=== PATIENT | male | born 1960 | race American Indian/Alaskan Native ===

== ENCOUNTER 2017-10-01 05:50 | Inpatient (IN) | payer MEDICARE, MEDICAID ==
[2017-10-01 05:51] VITALS: BMI 25.6
--- NOTE | 2017-10-01 06:11 | C.PDOC ---
History Of Present Illness Patient is a 57 y/o male who presents to the ED with a request for dialysis access. Time Seen by Provider: 10/01/17 05:57 Chief Complaint (Nursing): Abnormal Skin Integrity Past Medical History Vital Signs: Last Vital Signs Temp 97.8 F 10/01/17 05:59 Pulse 78 10/01/17 05:59 Resp 14 10/01/17 05:59 BP 175/79 H 10/01/17 05:59 Pulse Ox 96 10/01/17 06:11 - Medical History PMH: Anemia, CAD, CHF, COPD, HTN, End Stage Renal Disease (dialysis M/W/F), Chronic Kidney Disease - [facility] Procedures HEMODIALYSIS (10/16/14) Family History: States: Unknown Family Hx - Social History Hx Tobacco Use: Yes Hx Alcohol Use: No Hx Substance Use: No - Immunization History Hx Tetanus Toxoid Vaccination: No Hx Influenza Vaccination: Yes Hx Pneumococcal Vaccination: Yes ED Course And Treatment O2 Sat by Pulse Oximetry: 96 Disposition - Disposition Forms: Layar (Korean)
--- NOTE | 2017-10-01 06:18 | C.PDOC ---
History Of Present Illness Patient presents to ED for dialysis access. As per patient, he has worsening ulcerations of the skin over his left AV fistula. Wednesday when he went to hemodialysis (was completed), he was he would need another access for dialysis. Patient was sent to [facility] in [place], [place], where the area was medicated and bandaged. Patient was then sent to [facility] for further eval and access placement. However patient states the wait was too long and he left. He denies physical complaints. PMHx of ESRD on HD (M,W,F), anemia, HTN, COPD. PMD - none Vascular surgeon - Dr. Guerra Time Seen by Provider: 10/01/17 05:57 Chief Complaint (Nursing): Abnormal Skin Integrity History Per: Patient History/Exam Limitations: no limitations Current Symptoms Are (Timing): Still Present Severity: None Past Medical History Reviewed: Historical Data, Nursing Documentation, Vital Signs Vital Signs: Last Vital Signs Temp 98 F 10/01/17 19:30 Pulse 66 10/01/17 19:30 Resp 20 10/01/17 19:30 BP 160/108 H 10/01/17 20:50 Pulse Ox 96 10/01/17 19:30 - Medical History PMH: Anemia, CAD, CHF, COPD, HTN, End Stage Renal Disease (dialysis M/W/F), Chronic Kidney Disease - [facility] Procedures HEMODIALYSIS (10/16/14) Family History: States: No Known Family Hx - Social History Hx Tobacco Use: Yes Hx Alcohol Use: No Hx Substance Use: No - Immunization History Hx Tetanus Toxoid Vaccination: No Hx Influenza Vaccination: Yes Hx Pneumococcal Vaccination: Yes Review Of Systems Except As Marked, All Systems Reviewed And Found Negative. Constitutional: Negative for: Fever, Chills Cardiovascular: Negative for: Chest Pain Respiratory: Negative for: Cough, Shortness of Breath Musculoskeletal: Negative for: Arm Pain Skin: Negative for: Rash Neurological: Negative for: Weakness Physical Exam - Physical Exam Appears: Well, Non-toxic, No Acute Distress Skin: Other (left upper arm - two ulcerations over AV fistula without erythema or active bleeding, (+) palpable thrill) Oral Mucosa: Moist Cardiovascular: Rhythm Regular Respiratory: Normal Breath Sounds, No Rales, No Rhonchi, No Wheezing Gastrointestinal/Abdominal: Normal Exam, Bowel Sounds, Soft, No Tenderness Neurological/Psych: Oriented x3 ED Course And Treatment - Laboratory Results Result Diagrams: 10/01/17 06:38 10/01/17 06:38 ECG: Interpreted By Me, Viewed By Me (NSR 70 bpm, left axis deviation, peaked T waves V3-V4, no acute ST changes) ECG Interpretation: Abnormal O2 Sat by Pulse Oximetry: 96 (RA) Pulse Ox Interpretation: Normal - Radiology CXR: Interpreted by Me, Viewed By Me CXR Interpretation: Yes: No Acute Disease, Other (no effusions). No: Infiltrates Progress Note: Blood work, EKG, CXR ordered and reviewed. Dr. Guerra is on blue list, requests hospitalist admission. Dr. De La O spoken with and aware. - Physician Consult Information Physician Contacted: Lan Guerra Jr. Outcome Of Conversation: Discussed patient with Dr. Guerra, patient will be admitted under his service and taken to OR for dialysis access. Disposition - Disposition Disposition: HOSPITALIZED Disposition Time: 06:25 Condition: STABLE - Clinical Impression Clinical Impression: ESRD (end stage renal disease) on dialysis, Problem with dialysis access, Skin ulcer Decision To Admit - Pt Status Changed To: Hospital Disposition Of: Inpatient - Admit Certification Admit to Inpatient:: After my assessment, the patient will require hospitalization for at least two midnights. This is because of the severity of symptoms shown, intensity of services needed, and/or the medical risk in this patient being treated as an outpatient. - InPatient: Physician Admission Certification: I certify that this patient requires 2 or more midnights of care for the following reason:: see notes - . Bed Request Type: Regular Admitting Physician: Steve De La O Patient Diagnosis: Skin ulcer, ESRD (end stage renal disease) on dialysis, Problem with dialysis access
[2017-10-01 06:41] LABS: BASO # 0.1 K/uL (0.0-0.2); BASO % 1.1 % (0.0-2.0); EOS # 0.1 K/uL (0.0-0.7); HEMOGLOBIN 10.3 g/dL (12.0-18.0); LYMPH # 1.4 K/uL (1.0-4.3); MEAN CELL VOLUME 93.5 fL (80.0-94.0); MEAN CORPUSCULAR HEMOGLOBIN 31.6 pg (27.0-31.0); MEAN CORPUSCULAR HGB CONC 33.8 g/dL (33.0-37.0); MEAN PLATELET VOLUME 7.9 fL (7.2-11.7); MONO # 1.4 K/uL (0.0-0.8); MONO % 21.4 % (0.0-10.0); NEUT # 3.5 K/uL (1.8-7.0); NEUT % 54.5 % (50.0-75.0); NRBC % 0.2 % (0.0-2.0); PLATELET COUNT 402 K/uL (130-400); RBC 3.27 Mil/uL (4.40-5.90); RED CELL DISTRIBUTION WIDTH 16.8 % (11.5-14.5); WHITE BLOOD COUNT 6.4 K/uL (4.8-10.8)
[2017-10-01 06:53] LABS: INR 1.1; PROTHROMBIN TIME 12.3 SECONDS (9.7-12.2)
[2017-10-01 07:04] LABS: ALBUMIN 4.3 g/dL (3.5-5.0); CALCIUM 9.1 mg/dl (8.6-10.4)
--- NOTE | 2017-10-01 08:00 | CP.PCM.HP ---
History of Present Illness - History of Present Illness History of Present Illness: 57 year old male with past medical history of dialysis and HTN presents to ED for dialysis access. Per patient, he has worsening ulcerations of the skin over his left AV fistula. He states he needs another access for dialysis. Patient was sent to [facility] for further evaluation and access placement but states the wait was long and he left. He denies chest pain, shortness of breath, nausea, vomiting, pain, diarrhea or constipation. Vascular surgeon - Dr. Guerra Past Medical History: Dialysis for the past 6 years (MWF), HTN Past Surgical History: Right kidney removed 39 years ago; Left AV fistula 6 years ago Allergies: NKDA Social: pack and 1/2 per day for about 30+ years; denies alcohol or illicit drug use; lives in [place] Present on Admission - Present on Admission Any Indicators Present on Admission: No Review of Systems - Constitutional Constitutional: absent: Fever, Weight Loss - EENT Eyes: absent: Requires Corrective Lenses Ears: absent: Dizziness - Cardiovascular Cardiovascular: absent: Chest Pain, Dyspnea - Respiratory Respiratory: absent: Dyspnea - Gastrointestinal Gastrointestinal: absent: Constipation, Diarrhea, Nausea, Vomiting - Genitourinary Genitourinary: absent: Dysuria - Neurological Neurological: absent: Dizziness, Headaches Past Patient History - Infectious Disease Hx of Infectious Diseases: None - Past Medical History & Family History Past Medical History?: Yes - Past Social History Smoking Status: Heavy Smoker > 10 Cigarettes Daily - CARDIAC Hx Congestive Heart Failure: Yes Hx Hypertension: Yes - PULMONARY Hx Chronic Obstructive Pulmonary Disease (COPD): Yes - NEUROLOGICAL Hx Neurological Disorder: Yes HX Cerebrovascular Accident: Yes - HEENT Hx HEENT Problems: No - RENAL Hx Chronic Kidney Disease: Yes - ENDOCRINE/METABOLIC Hx Endocrine Disorders: No - HEMATOLOGICAL/ONCOLOGICAL Hx Anemia: Yes - INTEGUMENTARY Hx Dermatological Problems: No - MUSCULOSKELETAL/RHEUMATOLOGICAL Hx Falls: No - GASTROINTESTINAL Hx Gastrointestinal Disorders: No - GENITOURINARY/GYNECOLOGICAL Hx Genitourinary Disorders: No - PSYCHIATRIC Hx Substance Use: No - SURGICAL HISTORY Hx Surgeries: Yes Hx Arteriovenous Shunt: Yes Hx Vascular Access Device: Yes Other/Comment: nephrectomy hx at age 18 - ANESTHESIA Hx Anesthesia: Yes Hx Anesthesia Reactions: No Hx Malignant Hyperthermia: No Meds Allergies/Adverse Reactions: Allergies Allergy/AdvReac Type Severity Reaction Status Date / Time No Known Allergies Allergy Verified 10/01/17 06:02 Physical Exam - Constitutional Appears: No Acute Distress - Head Exam Head Exam: ATRAUMATIC, NORMAL INSPECTION - Eye Exam Eye Exam: EOMI, Normal appearance - ENT Exam ENT Exam: Mucous Membranes Moist - Respiratory Exam Respiratory Exam: Clear to Auscultation Bilateral, NORMAL BREATHING PATTERN - Cardiovascular Exam Cardiovascular Exam: REGULAR RHYTHM, RRR, +S1, +S2 - GI/Abdominal Exam GI & Abdominal Exam: Normal Bowel Sounds, Soft. absent: Distended, Tenderness - Extremities Exam Extremities exam: Positive for: normal inspection. Negative for: calf tenderness, pedal edema, tenderness - Neurological Exam Neurological exam: Alert, Oriented x3 - Psychiatric Exam Psychiatric exam: Normal Affect, Normal Mood - Skin Skin Exam: Normal Color, Warm Additional comments: Left arm AV fistula Results - Vital Signs Recent Vital Signs: Last Vital Signs Temp 97.8 F 10/01/17 05:59 Pulse 78 10/01/17 05:59 Resp 14 10/01/17 05:59 BP 175/79 H 10/01/17 05:59 Pulse Ox 96 10/01/17 07:02 - Labs Result Diagrams: 10/01/17 06:38 10/01/17 06:38 Labs: Laboratory Results - last 24 hr 10/01/17 10/01/17 10/01/17 05:55 06:38 06:38 WBC 6.4 RBC 3.27 L Hgb 10.3 L Hct 30.5 L MCV 93.5 D MCH 31.6 H MCHC 33.8 RDW 16.8 H Plt Count 402 H MPV 7.9 Neut % (Auto) 54.5 Lymph % (Auto) 22.0 [place] % (Auto) 21.4 H Eos % (Auto) 1.0 Baso % (Auto) 1.1 Neut # 3.5 Lymph # 1.4 [place] # 1.4 H Eos # 0.1 Baso # 0.1 PT INR APTT Sodium 138 Potassium 4.7 Chloride 93 L Carbon Dioxide 29 Anion Gap 21 H BUN 56 H Creatinine 13.9 H* Est GFR ( Amer) 4 Est GFR (Non-Af Amer) 4 POC Glucose (mg/dL) 74 Random Glucose 96 Calcium 9.1 Total Bilirubin 1.0 AST 15 L ALT 15 L D Alkaline Phosphatase 61 Total Protein 8.6 H Albumin 4.3 Globulin 4.3 H Albumin/Globulin Ratio 1.0 10/01/17 06:38 WBC RBC Hgb Hct MCV MCH MCHC RDW Plt Count MPV Neut % (Auto) Lymph % (Auto) [place] % (Auto) Eos % (Auto) Baso % (Auto) Neut # Lymph # [place] # Eos # Baso # PT 12.3 H INR 1.1 APTT 33 Sodium Potassium Chloride Carbon Dioxide Anion Gap BUN Creatinine Est GFR ( Amer) Est GFR (Non-Af Amer) POC Glucose (mg/dL) Random Glucose Calcium Total Bilirubin AST ALT Alkaline Phosphatase Total Protein Albumin Globulin Albumin/Globulin Ratio Assessment & Plan - Assessment and Plan (Free Text) Assessment: 57 year old male with past medical history of dialysis and HTN presents to ED for dialysis access. - Permacath to be placed today 09/[address] Mari Reyes PGY-1
--- NOTE | 2017-10-01 08:25 | RAD ---
PROCEDURE: CHEST RADIOGRAPH, 1 VIEW HISTORY: preop COMPARISON: 11/03/2016 FINDINGS: LUNGS: Clear. PLEURA: No pneumothorax or pleural fluid seen. CARDIOVASCULAR: Normal. OSSEOUS STRUCTURES: No significant abnormalities. VISUALIZED UPPER ABDOMEN: Normal. OTHER FINDINGS: None. IMPRESSION: No active disease.
[2017-10-01 08:42] LABS: BANDS 2 % (0-2); EOSINOPHIL 1 % (0-4); LYMPHOCYTE 29 % (20-40); MONOCYTE 18 % (0-10); NEUTROPHIL 50 % (50-75); PLATELET ESTIMATE NORMAL (NORMAL); TOTAL CELLS COUNTED 100
[2017-10-01 08:43] LABS: ANISOCYTOSIS MODERATE; HYPOCHROMIC MODERATE; MICROCYTOSIS SLIGHT; POIKILOCYTOSIS MODERATE; TEARDROP CELLS SLIGHT
[2017-10-01 08:44] LABS: GIANT PLATELETS PRESENT; LARGE PLATELETS PRESENT; OVALOCYTES MODERATE
--- NOTE | 2017-10-01 09:01 | CP.PCM.CON ---
History of Present Illness - History of Present Illness History of Present Illness: 57 year old male with past medical history of dialysis and HTN presents to ED for dialysis access. Per patient, he has worsening ulcerations of the skin over his left AV fistula. He states he needs another access for dialysis. Patient was sent to [facility] for further evaluation and access placement but states the wait was long and he left. He denies chest pain, shortness of breath, nausea, vomiting, pain, diarrhea or constipation. Vascular surgeon - Dr. Guerra Past Medical History: Dialysis for the past 6 years (MWF), HTN Past Surgical History: Right kidney removed 39 years ago; Left AV fistula 6 years ago Allergies: NKDA Social: pack and 1/2 per day for about 30+ years; denies alcohol or illicit drug use; lives in [place] Review of Systems - Constitutional Constitutional: absent: Chills, Fever, Weight Loss - Cardiovascular Cardiovascular: absent: Chest Pain, Dyspnea - Respiratory Respiratory: absent: Dyspnea - Gastrointestinal Gastrointestinal: absent: Constipation, Diarrhea, Nausea, Vomiting - Genitourinary Genitourinary: absent: Dysuria Past Patient History - Infectious Disease Hx of Infectious Diseases: None - Past Medical History & Family History Past Medical History?: Yes - Past Social History Smoking Status: Heavy Smoker > 10 Cigarettes Daily - CARDIAC Hx Congestive Heart Failure: Yes Hx Hypertension: Yes - PULMONARY Hx Chronic Obstructive Pulmonary Disease (COPD): Yes - NEUROLOGICAL Hx Neurological Disorder: Yes HX Cerebrovascular Accident: Yes - HEENT Hx HEENT Problems: No - RENAL Hx Chronic Kidney Disease: Yes - ENDOCRINE/METABOLIC Hx Endocrine Disorders: No - HEMATOLOGICAL/ONCOLOGICAL Hx Anemia: Yes - INTEGUMENTARY Hx Dermatological Problems: No - MUSCULOSKELETAL/RHEUMATOLOGICAL Hx Falls: No - GASTROINTESTINAL Hx Gastrointestinal Disorders: No - GENITOURINARY/GYNECOLOGICAL Hx Genitourinary Disorders: No - PSYCHIATRIC Hx Substance Use: No - SURGICAL HISTORY Hx Surgeries: Yes Hx Arteriovenous Shunt: Yes Hx Vascular Access Device: Yes Other/Comment: nephrectomy hx at age 18 - ANESTHESIA Hx Anesthesia: Yes Hx Anesthesia Reactions: No Hx Malignant Hyperthermia: No Meds Allergies/Adverse Reactions: Allergies Allergy/AdvReac Type Severity Reaction Status Date / Time No Known Allergies Allergy Verified 10/01/17 06:02 Physical Exam - Constitutional Appears: No Acute Distress - Head Exam Head Exam: ATRAUMATIC, NORMAL INSPECTION - Eye Exam Eye Exam: EOMI, Normal appearance - ENT Exam ENT Exam: Mucous Membranes Moist - Respiratory Exam Respiratory Exam: Clear to Auscultation Bilateral, NORMAL BREATHING PATTERN - Cardiovascular Exam Cardiovascular Exam: REGULAR RHYTHM, RRR, +S1, +S2 - GI/Abdominal Exam GI & Abdominal Exam: Normal Bowel Sounds, Soft. absent: Tenderness - Extremities Exam Additional comments: AV fistula in the left warm Results - Vital Signs Recent Vital Signs: Last Vital Signs Temp 97.8 F 10/01/17 05:59 Pulse 78 10/01/17 05:59 Resp 14 10/01/17 05:59 BP 175/79 H 10/01/17 05:59 Pulse Ox 96 10/01/17 07:02 - Labs Result Diagrams: 10/01/17 06:38 10/01/17 06:38 Labs: Laboratory Results - last 24 hr 10/01/17 10/01/17 10/01/17 05:55 06:38 06:38 WBC 6.4 RBC 3.27 L Hgb 10.3 L Hct 30.5 L MCV 93.5 D MCH 31.6 H MCHC 33.8 RDW 16.8 H Plt Count 402 H MPV 7.9 Neut % (Auto) 54.5 Lymph % (Auto) 22.0 [place] % (Auto) 21.4 H Eos % (Auto) 1.0 Baso % (Auto) 1.1 Neut # 3.5 Lymph # 1.4 [place] # 1.4 H Eos # 0.1 Baso # 0.1 Neutrophils % (Manual) 50 Band Neutrophils % 2 Lymphocytes % (Manual) 29 Monocytes % (Manual) 18 H Eosinophils % (Manual) 1 Platelet Estimate Normal Large Platelets Present Giant Platelets Present Hypochromasia (manual) Moderate Poikilocytosis (manual Moderate Anisocytosis (manual) Moderate Microcytosis (manual) Slight Macrocytosis (manual) Slight Tear Drop Cells Slight Ovalocytes Moderate PT INR APTT Sodium 138 Potassium 4.7 Chloride 93 L Carbon Dioxide 29 Anion Gap 21 H BUN 56 H Creatinine 13.9 H* Est GFR ( Amer) 4 Est GFR (Non-Af Amer) 4 POC Glucose (mg/dL) 74 Random Glucose 96 Calcium 9.1 Total Bilirubin 1.0 AST 15 L ALT 15 L D Alkaline Phosphatase 61 Total Protein 8.6 H Albumin 4.3 Globulin 4.3 H Albumin/Globulin Ratio 1.0 Blood Type Antibody Screen 10/01/17 10/01/17 06:38 06:38 WBC RBC Hgb Hct MCV MCH MCHC RDW Plt Count MPV Neut % (Auto) Lymph % (Auto) [place] % (Auto) Eos % (Auto) Baso % (Auto) Neut # Lymph # [place] # Eos # Baso # Neutrophils % (Manual) Band Neutrophils % Lymphocytes % (Manual) Monocytes % (Manual) Eosinophils % (Manual) Platelet Estimate Large Platelets Giant Platelets Hypochromasia (manual) Poikilocytosis (manual Anisocytosis (manual) Microcytosis (manual) Macrocytosis (manual) Tear Drop Cells Ovalocytes PT 12.3 H INR 1.1 APTT 33 Sodium Potassium Chloride Carbon Dioxide Anion Gap BUN Creatinine Est GFR ( Amer) Est GFR (Non-Af Amer) POC Glucose (mg/dL) Random Glucose Calcium Total Bilirubin AST ALT Alkaline Phosphatase Total Protein Albumin Globulin Albumin/Globulin Ratio Blood Type A POSITIVE Antibody Screen Negative Assessment & Plan - Assessment and Plan (Free Text) Assessment: 57 year old male with past medical history of dialysis and HTN presents to ED for dialysis access. - Permacath to be placed today 09/[address] Mari Reyes PGY-1
--- NOTE | 2017-10-01 10:07 | CP.PCM.HP ---
History of Present Illness - History of Present Illness History of Present Illness: PGY1 H+P for Dr. Corona Patient is a 57 year old male with a past medical history of ESRD on HD and HTN. He reports that he has had worsening ulcerations over the skin of his left AV fistula. He first noticed the ulcerations starting approximately one month ago but did nothing about it. The access center sent him to [facility] for further evaluation. He stated that the wait was too long so he decided to come to [facility]. He normally gets dialysis MWF and his last treatment was on Wednesday. He denies chest pain, shortness of breath, nausea, vomiting, pain, diarrhea or constipation. Patient states he feels completely normal and if it was not for the ulcerations on his arm, he would be here today. Vascular surgeon - Dr. Guerra PMH: Dialysis for the past 6 years (MWF), HTN PSH: Right kidney removed 39 years ago; Left AV fistula 6 years ago Social: active smoker (30+ pack years), denies alcohol or illicit drug use ( quit all drugs ~16 years ago. "I used everything. Never injected. Smoked and snort.") Allergies: NKDA Present on Admission - Present on Admission Any Indicators Present on Admission: No Review of Systems - Review of Systems All systems: reviewed and no additional remarkable complaints except (as per HPI ) Past Patient History - Infectious Disease Hx of Infectious Diseases: None - Past Medical History & Family History Past Medical History?: Yes - Past Social History Smoking Status: Heavy Smoker > 10 Cigarettes Daily - CARDIAC Hx Congestive Heart Failure: Yes Hx Hypertension: Yes - PULMONARY Hx Chronic Obstructive Pulmonary Disease (COPD): Yes - NEUROLOGICAL Hx Neurological Disorder: Yes HX Cerebrovascular Accident: Yes - HEENT Hx HEENT Problems: No - RENAL Hx Chronic Kidney Disease: Yes - ENDOCRINE/METABOLIC Hx Endocrine Disorders: No - HEMATOLOGICAL/ONCOLOGICAL Hx Anemia: Yes - INTEGUMENTARY Hx Dermatological Problems: No - MUSCULOSKELETAL/RHEUMATOLOGICAL Hx Falls: No - GASTROINTESTINAL Hx Gastrointestinal Disorders: No - GENITOURINARY/GYNECOLOGICAL Hx Genitourinary Disorders: No - PSYCHIATRIC Hx Substance Use: No - SURGICAL HISTORY Hx Surgeries: Yes Hx Arteriovenous Shunt: Yes Hx Vascular Access Device: Yes Other/Comment: nephrectomy hx at age 18 - ANESTHESIA Hx Anesthesia: Yes Hx Anesthesia Reactions: No Hx Malignant Hyperthermia: No Meds Allergies/Adverse Reactions: Allergies Allergy/AdvReac Type Severity Reaction Status Date / Time No Known Allergies Allergy Verified 10/01/17 06:02 Physical Exam - Constitutional Appears: Non-toxic, No Acute Distress - Head Exam Head Exam: ATRAUMATIC, NORMOCEPHALIC - Eye Exam Eye Exam: EOMI, Normal appearance, PERRL - ENT Exam ENT Exam: Mucous Membranes Moist - Respiratory Exam Respiratory Exam: Wheezes (denied breathing treatment), NORMAL BREATHING PATTERN. absent: Accessory Muscle Use, Rales, Rhonchi, Respiratory Distress - Cardiovascular Exam Cardiovascular Exam: REGULAR RHYTHM, +S1 - GI/Abdominal Exam GI & Abdominal Exam: Soft. absent: Distended, Firm, Guarding, Hernia, Rigid, Tenderness - Extremities Exam Extremities exam: Positive for: normal capillary refill, normal inspection, pedal pulses present. Negative for: calf tenderness, pedal edema Additional comments: palpable thrill over left upper arm AV fistula - Neurological Exam Neurological exam: Alert, CN II-XII Intact, Normal Gait, Oriented x3 - Psychiatric Exam Psychiatric exam: Normal Affect, Normal Mood - Skin Skin Exam: Dry, Warm Additional comments: Ulcerations over left av fistula Results - Vital Signs Recent Vital Signs: Last Vital Signs Temp 97.8 F 10/01/17 05:59 Pulse 67 10/01/17 08:42 Resp 14 10/01/17 05:59 BP 175/79 H 10/01/17 05:59 Pulse Ox 96 10/01/17 07:02 - Labs Result Diagrams: 10/01/17 06:38 10/01/17 06:38 Labs: Laboratory Results - last 24 hr 10/01/17 10/01/17 10/01/17 05:55 06:38 06:38 WBC 6.4 RBC 3.27 L Hgb 10.3 L Hct 30.5 L MCV 93.5 D MCH 31.6 H MCHC 33.8 RDW 16.8 H Plt Count 402 H MPV 7.9 Neut % (Auto) 54.5 Lymph % (Auto) 22.0 [place] % (Auto) 21.4 H Eos % (Auto) 1.0 Baso % (Auto) 1.1 Neut # 3.5 Lymph # 1.4 [place] # 1.4 H Eos # 0.1 Baso # 0.1 Neutrophils % (Manual) 50 Band Neutrophils % 2 Lymphocytes % (Manual) 29 Monocytes % (Manual) 18 H Eosinophils % (Manual) 1 Platelet Estimate Normal Large Platelets Present Giant Platelets Present Hypochromasia (manual) Moderate Poikilocytosis (manual Moderate Anisocytosis (manual) Moderate Microcytosis (manual) Slight Macrocytosis (manual) Slight Tear Drop Cells Slight Ovalocytes Moderate PT INR APTT Sodium 138 Potassium 4.7 Chloride 93 L Carbon Dioxide 29 Anion Gap 21 H BUN 56 H Creatinine 13.9 H* Est GFR ( Amer) 4 Est GFR (Non-Af Amer) 4 POC Glucose (mg/dL) 74 Random Glucose 96 Calcium 9.1 Total Bilirubin 1.0 AST 15 L ALT 15 L D Alkaline Phosphatase 61 Total Protein 8.6 H Albumin 4.3 Globulin 4.3 H Albumin/Globulin Ratio 1.0 Blood Type Antibody Screen 10/01/17 10/01/17 06:38 06:38 WBC RBC Hgb Hct MCV MCH MCHC RDW Plt Count MPV Neut % (Auto) Lymph % (Auto) [place] % (Auto) Eos % (Auto) Baso % (Auto) Neut # Lymph # [place] # Eos # Baso # Neutrophils % (Manual) Band Neutrophils % Lymphocytes % (Manual) Monocytes % (Manual) Eosinophils % (Manual) Platelet Estimate Large Platelets Giant Platelets Hypochromasia (manual) Poikilocytosis (manual Anisocytosis (manual) Microcytosis (manual) Macrocytosis (manual) Tear Drop Cells Ovalocytes PT 12.3 H INR 1.1 APTT 33 Sodium Potassium Chloride Carbon Dioxide Anion Gap BUN Creatinine Est GFR ( Amer) Est GFR (Non-Af Amer) POC Glucose (mg/dL) Random Glucose Calcium Total Bilirubin AST ALT Alkaline Phosphatase Total Protein Albumin Globulin Albumin/Globulin Ratio Blood Type A POSITIVE Antibody Screen Negative Assessment & Plan - Assessment and Plan (Free Text) Plan: ESRD on HD (MWF) Gen. Surg Consult, Dr. Guerra Nephro consult, Dr. Neri Patient scheduled to have Permacath placed today, 10/01/17, with Dr. Guerra. Patient will have HD after surgery. f/u surgery recs f/u nephro recs HTN continue home medications * Amlodipine 10mg PO daily * Carvedilol 25mg PO BID * Clonidine 0.3mg PO BID * Crestor 5mg PO HS Prophylactic Care continue home medications * Albuterol HFA 2 puff IH q4 PRN * Phoslo 2001mg PO TIDCC * Cinacalcet 30mg PO daily * Multimineral/Multivitamin 1 tab PO daily * Protonix 40mg PO daily Case discussed with Dr. Chloe Cabrales Rosemary PGY1
[2017-10-01] MEDS ORDERED: Albuterol HFA 90 mcg/actuation (8 g) IH PRN (11:35)
[2017-10-01] MEDS ORDERED: HEPARIN-NS 5,000 UNITS/500 ML 5,000 UNIT/500 ML BAG IV ONE (11:55)
[2017-10-01] MEDS ORDERED: Lidocaine 1% Inj (20ml) ONE (11:56)
[2017-10-01] MEDS ORDERED: Midazolam 2 MG/2 ML VIAL ONE (11:59)
[2017-10-01] MEDS ORDERED: Propofol 10 mg/ml Inj (20 ML) ONE (11:59)
[2017-10-01] MEDS ORDERED: Lidocaine Hydrochloride 5 ML INJ ONE (11:59)
[2017-10-01] MEDS ORDERED: Iodixanol 320 MG/ML 200 ML BOTTLE IV ONE (12:01)
[2017-10-01] MEDS ORDERED: Albuterol HFA 90 mcg/actuation (8 g) ONE (12:04)
[2017-10-01] MEDS ORDERED: ceFAZolin IV 1 gm in Dextrose 1 GM/50 ML BAG IVPB ONE (12:43)
[2017-10-01] MEDS ORDERED: Sodium Chloride 0.9% 250 ML IV ONE (12:58)
--- NOTE | 2017-10-01 13:13 | CP.PCM.PN ---
Subjective - Date & Time of Evaluation Date of Evaluation: 10/01/17 Time of Evaluation: 13:12 - Subjective Subjective: will plan new permanent access as opd Objective - Vital Signs/Intake and Output Vital Signs (last 24 hours): Temp Pulse Resp BP Pulse Ox 97.8 F 67 20 159/88 H 100 10/01/17 08:00 10/01/17 08:42 10/01/17 08:00 10/01/17 08:00 10/01/17 08:00 Intake and Output: 10/01/17 10/01/17 06:59 18:59 Intake Total 150 Balance 150 - Medications Medications: Current Medications Albuterol (Ventolin Hfa 90 Mcg/Actuation (8 G)) 2 puff IH Q4 PRN PRN Reason: Wheezing Amlodipine Besylate (Norvasc) 10 mg PO DAILY [facility] Calcium Acetate (Phoslo) 2,001 mg PO TID[facility] Last Admin: 10/01/17 11:54 Dose: Not Given Carvedilol (Coreg) 25 mg PO BID [facility] Cinacalcet (Sensipar) 30 mg PO DAILY [facility] Clonidine HCl (Catapres) 0.3 mg PO BID [facility] Multivitamins/Minerals (Therapeutic-M Tab) 1 tab PO DAILY [facility] [id number] Ethyl Esters (Lovaza) 1 gm PO BID [facility] Pantoprazole Sodium (Protonix Ec Tab) 40 mg PO DAILY [facility] Pneumococcal Polyvalent Vaccine (Pneumovax 23 Vaccine) 0.5 ml SC .ONCE ONE Stop: 10/03/17 10:01 Rosuvastatin Calcium (Crestor) 5 mg PO HS ABELINO - Labs Labs: 10/01/17 06:38 10/01/17 06:38 PT 12.3 SECONDS (9.7-12.2) H 10/01/17 06:38 INR 1.1 10/01/17 06:38 APTT 33 SECONDS (21-34) 10/01/17 06:38
[2017-10-01] MEDS ORDERED: Sodium Chloride 0.9% 1,000 ML IV SCH (13:15)
--- NOTE | 2017-10-01 13:27 | RAD ---
HISTORY: sp RIJ permacath COMPARISON: 10/01/2017 at 6:40 a.m. FINDINGS: LUNGS: No active pulmonary disease. PLEURA: No significant pleural effusion identified, no pneumothorax apparent. CARDIOVASCULAR: Normal heart size. New tunneled right central venous dialysis catheter terminating in the region of the superior vena cava. OSSEOUS STRUCTURES: No significant abnormalities. VISUALIZED UPPER ABDOMEN: Normal. OTHER FINDINGS: None. IMPRESSION: New right central venous dialysis catheter.
--- NOTE | 2017-10-01 13:33 | PCM.SURG1 ---
Surgeon's Initial Post Op Note - Surgeon's Notes Surgeon: Dr Guerra Fish Bailer: Dr Umanzor PGY3 Type of Anesthesia: General Endo Pre-Operative Diagnosis: renal failure Operative Findings: as above Post-Operative Diagnosis: as above Operation Performed: RIJ permacath insertion with US Specimen/Specimens Removed: none Estimated Blood Loss: EBL {In ML}: 5 Blood Products Given: N/A Drains Used: No Drains Post-Op Condition: Good Date of Surgery/Procedure: 10/01/17 Time of Surgery/Procedure: 13:33
--- NOTE | 2017-10-01 14:00 | RAD ---
PROCEDURE: Less than 1 hr fluoroscopic time utilized during performance of the procedure. HISTORY: RENAL FAILURE COMPARISON: None TECHNIQUE: Standard protocol for this study/examination. FINDINGS: Total exam DLP: (mGy): 2.02 Submitted images from the current procedure: 5.0 IMPRESSION: Total fluoroscopic time (continuous mode) utilized during the procedure: 13.6 seconds.
--- NOTE | 2017-10-01 14:48 | CP.PCM.CON ---
History of Present Illness - History of Present Illness History of Present Illness: 57 year old male with past medical history of dialysis and HTN presents to ED for dialysis access. Per patient, he has worsening ulcerations of the skin over his left AV fistula. He states he needs another access for dialysis. Patient was sent to [facility] for further evaluation and access placement but states the wait was long and he left. He denies chest pain, shortness of breath, nausea, vomiting, pain, diarrhea or constipation. Other PMH: CHRONIC GN ATROPHIC SOLITARY KIDNEY Vascular surgeon - Dr. Guerra Past Medical History: Dialysis for the past 6 years (MWF), HTN Past Surgical History: Right kidney removed 39 years ago; Left AV fistula 6 years ago Allergies: NKDA Social: pack and 1/2 per day for about 30+ years; denies alcohol or illicit drug use; lives in [place] Review of Systems - Constitutional Constitutional: Fatigue, Lethargy, Weakness - EENT Eyes: absent: As Per HPI, Blind Spots, Blurred Vision, Change in Vision, Decreased Night Vision, Diplopia, Discharge, Dry Eye, Exophthalmos, Floaters, Irritation, Itchy Eyes, Loss of Peripheral Vision, Pain, Photophobia, Requires Corrective Lenses, Sees Flashes, Spots in Vision, Tunnel Vision, Other Visual Disturbances, Loss of Vision, Other Ears: absent: As Per HPI, Decreased Hearing, Ear Discharge, Ear Pain, Tinnitus, Abnormal Hearing, Disequilibrium, Dizziness, Other Nose/Mouth/Throat: absent: As Per HPI, Epistaxis, Nasal Congestion, Nasal Discharge, Nasal Obstruction, Nasal Trauma, Nose Pain, Post Nasal Drip, Sinus Pain, Sinus Pressure, Bleeding Gums, Change in Voice, Dental Pain, Dry Mouth, Dysphagia, Halitosis, Hoarsness, Lip Swelling, Mouth Lesions, Mouth Pain, Odynophagia, Sore Throat, Throat Swelling, Tongue Swelling, Facial Pain, Neck Pain, Neck Mass, Other - Cardiovascular Cardiovascular: Dyspnea on Exertion, Rapid Heart Rate - Respiratory Respiratory: Cough, Dyspnea on Exertion - Gastrointestinal Gastrointestinal: Constipation, Nausea - Genitourinary Genitourinary: As Per HPI - Musculoskeletal Musculoskeletal: Muscle Weakness, Myalgias Past Patient History - Infectious Disease Hx of Infectious Diseases: None - Past Medical History & Family History Past Medical History?: Yes Past Family History: Reviewed and not pertinent - Past Social History Smoking Status: Heavy Smoker > 10 Cigarettes Daily Chewing Tobacco Use: No Cigar Use: No Alcohol: Occasional Drugs: Denies - CARDIAC Hx Congestive Heart Failure: Yes Hx Hypertension: Yes - PULMONARY Hx Chronic Obstructive Pulmonary Disease (COPD): Yes - NEUROLOGICAL Hx Neurological Disorder: Yes HX Cerebrovascular Accident: Yes - HEENT Hx HEENT Problems: No - RENAL Hx Chronic Kidney Disease: Yes - ENDOCRINE/METABOLIC Hx Endocrine Disorders: No - HEMATOLOGICAL/ONCOLOGICAL Hx Anemia: Yes - INTEGUMENTARY Hx Dermatological Problems: No - MUSCULOSKELETAL/RHEUMATOLOGICAL Hx Falls: No - GASTROINTESTINAL Hx Gastrointestinal Disorders: No - GENITOURINARY/GYNECOLOGICAL Hx Genitourinary Disorders: No - PSYCHIATRIC Hx Substance Use: No - SURGICAL HISTORY Hx Surgeries: Yes Hx Arteriovenous Shunt: Yes Hx Vascular Access Device: Yes Other/Comment: nephrectomy hx at age 18 - ANESTHESIA Hx Anesthesia: Yes Hx Anesthesia Reactions: No Hx Malignant Hyperthermia: No Meds Allergies/Adverse Reactions: Allergies Allergy/AdvReac Type Severity Reaction Status Date / Time No Known Allergies Allergy Verified 10/01/17 06:02 - Medications Medications: Current Medications Albuterol (Ventolin Hfa 90 Mcg/Actuation (8 G)) 2 puff IH Q4 PRN PRN Reason: Wheezing Amlodipine Besylate (Norvasc) 10 mg PO DAILY [facility] Calcium Acetate (Phoslo) 2,001 mg PO TIDCC [facility] Last Admin: 10/01/17 11:54 Dose: Not Given Carvedilol (Coreg) 25 mg PO BID [facility] Cinacalcet (Sensipar) 30 mg PO DAILY [facility] Clonidine HCl (Catapres) 0.3 mg PO BID [facility] Hydromorphone HCl (Dilaudid) 0.5 mg IVP Q10M PRN PRN Reason: Pain, moderate (4-7) Stop: 10/01/17 15:11 Sodium Chloride (Sodium Chloride 0.9%) 1,000 mls @ 50 mls/hr IV .Q20H [facility] Multivitamins/Minerals (Therapeutic-M Tab) 1 tab PO DAILY [facility] [id number] Ethyl Esters (Lovaza) 1 gm PO BID [facility] Pantoprazole Sodium (Protonix Ec Tab) 40 mg PO DAILY [facility] Pneumococcal Polyvalent Vaccine (Pneumovax 23 Vaccine) 0.5 ml SC .ONCE ONE Stop: 10/03/17 10:01 Rosuvastatin Calcium (Crestor) 5 mg PO HS [facility] Physical Exam - Constitutional Appears: No Acute Distress, Chronically Ill - Head Exam Head Exam: ATRAUMATIC, NORMAL INSPECTION - Eye Exam Eye Exam: EOMI, Normal appearance - Neck Exam Neck exam: Positive for: Normal Inspection. Negative for: Tenderness - Respiratory Exam Respiratory Exam: Clear to Auscultation Bilateral, NORMAL BREATHING PATTERN - Cardiovascular Exam Cardiovascular Exam: REGULAR RHYTHM, +S1 - GI/Abdominal Exam GI & Abdominal Exam: Soft. absent: Tenderness - Extremities Exam Extremities exam: Positive for: normal inspection. Negative for: tenderness - Neurological Exam Neurological exam: Alert, CN II-XII Intact - Skin Skin Exam: Dry, Warm Results - Vital Signs Recent Vital Signs: Last Vital Signs Temp 98.1 F 10/01/17 12:58 Pulse 72 10/01/17 12:58 Resp 24 10/01/17 12:58 BP 146/87 10/01/17 12:58 Pulse Ox 100 10/01/17 12:58 - Labs Result Diagrams: 10/01/17 06:38 10/01/17 06:38 Labs: Laboratory Results - last 24 hr 10/01/17 10/01/17 10/01/17 05:55 06:38 06:38 WBC 6.4 RBC 3.27 L Hgb 10.3 L Hct 30.5 L MCV 93.5 D MCH 31.6 H MCHC 33.8 RDW 16.8 H Plt Count 402 H MPV 7.9 Neut % (Auto) 54.5 Lymph % (Auto) 22.0 O'Brien % (Auto) 21.4 H Eos % (Auto) 1.0 Baso % (Auto) 1.1 Neut # 3.5 Lymph # 1.4 O'Brien # 1.4 H Eos # 0.1 Baso # 0.1 Neutrophils % (Manual) 50 Band Neutrophils % 2 Lymphocytes % (Manual) 29 Monocytes % (Manual) 18 H Eosinophils % (Manual) 1 Platelet Estimate Normal Large Platelets Present Giant Platelets Present Hypochromasia (manual) Moderate Poikilocytosis (manual Moderate Anisocytosis (manual) Moderate Microcytosis (manual) Slight Macrocytosis (manual) Slight Tear Drop Cells Slight Ovalocytes Moderate PT INR APTT Sodium 138 Potassium 4.7 Chloride 93 L Carbon Dioxide 29 Anion Gap 21 H BUN 56 H Creatinine 13.9 H* Est GFR ( Amer) 4 Est GFR (Non-Af Amer) 4 POC Glucose (mg/dL) 74 Random Glucose 96 Calcium 9.1 Total Bilirubin 1.0 AST 15 L ALT 15 L D Alkaline Phosphatase 61 Total Protein 8.6 H Albumin 4.3 Globulin 4.3 H Albumin/Globulin Ratio 1.0 Blood Type Antibody Screen 10/01/17 10/01/17 06:38 06:38 WBC RBC Hgb Hct MCV MCH MCHC RDW Plt Count MPV Neut % (Auto) Lymph % (Auto) O'Brien % (Auto) Eos % (Auto) Baso % (Auto) Neut # Lymph # O'Brien # Eos # Baso # Neutrophils % (Manual) Band Neutrophils % Lymphocytes % (Manual) Monocytes % (Manual) Eosinophils % (Manual) Platelet Estimate Large Platelets Giant Platelets Hypochromasia (manual) Poikilocytosis (manual Anisocytosis (manual) Microcytosis (manual) Macrocytosis (manual) Tear Drop Cells Ovalocytes PT 12.3 H INR 1.1 APTT 33 Sodium Potassium Chloride Carbon Dioxide Anion Gap BUN Creatinine Est GFR ( Amer) Est GFR (Non-Af Amer) POC Glucose (mg/dL) Random Glucose Calcium Total Bilirubin AST ALT Alkaline Phosphatase Total Protein Albumin Globulin Albumin/Globulin Ratio Blood Type A POSITIVE Antibody Screen Negative Assessment & Plan (1) Hypertensive chronic kidney disease with stage 5 chronic kidney disease or end stage renal disease Status: Acute (2) Bleeding from dialysis shunt Status: Acute (3) ESRD (end stage renal disease) Status: Acute (4) HTN (hypertension) Status: Acute Priority: High - Assessment and Plan (Free Text) Plan: DIALYSIS NOW BLOOD c+s new permcath might need revision av access
[2017-10-01] MEDS: Omega-3-Acid Ethyl Esters 1 GM Cap PO SCH (20:49)
--- NOTE | 2017-10-02 01:37 | OP ---
PROCEDURE DATE: 10/01/2017 PREOPERATIVE DIAGNOSIS: Malfunction of arteriovenous fistula, left arm. POSTOPERATIVE DIAGNOSIS: Malfunction of arteriovenous fistula, left arm. PROCEDURE CARRIED OUT: Placement of Perm-A-Cath, right jugular vein with C-arm fluoroscopy, ultrasound-guided puncture and micropuncture technique. SURGEON: Lan Guerra Jr., MD. ROOM WORKER: Dr. Umanzor. ANESTHESIA ADMINISTERED BY: Mr. Ryaa. INDICATIONS: The patient is an older middle-aged man with renal insufficiency, who had problems with his fistula to gain access. Because of this, Perm-A-Cath is inserted today. DESCRIPTION OF PROCEDURE: The patient was given local anesthesia, intravenous antibiotics. Using ultrasound guidance and micropuncture technique, the right jugular vein was cannulated. Under fluoroscopic control, guidewire was advanced centrally. Sheath dilator was passed over this. Catheter was flushed with heparinized saline. Positioned in the appropriate location with excellent return. It was tunneled on the right chest wall, beginning on the right chest wall and terminating in the superior vena cava via the right jugular vein. Ultrasound images of the neck showed that the vein was 14 to 15 mm in diameter with normal compressibility and no evidence of intraluminal thrombosis. Examination of his fistula shows that eventually we will have to place this with a new access device. Lan Guerra Jr., MD
[2017-10-02 07:59] LABS: BASO # 0.1 K/uL (0.0-0.2); BASO % 1.4 % (0.0-2.0); EOS # 0.1 K/uL (0.0-0.7); EOS % 1.4 % (0.0-4.0); HEMOGLOBIN 10.2 g/dL (12.0-18.0); LYMPH # 0.9 K/uL (1.0-4.3); MEAN CORPUSCULAR HEMOGLOBIN 31.3 pg (27.0-31.0); MEAN CORPUSCULAR HGB CONC 33.7 g/dL (33.0-37.0); MEAN PLATELET VOLUME 7.6 fL (7.2-11.7); MONO % 19.4 % (0.0-10.0); NEUT # 3.1 K/uL (1.8-7.0); NEUT % 59.8 % (50.0-75.0); RBC 3.27 Mil/uL (4.40-5.90); RED CELL DISTRIBUTION WIDTH 17.3 % (11.5-14.5); WHITE BLOOD COUNT 5.2 K/uL (4.8-10.8)
[2017-10-02 08:52] LABS: ALB/GLOB RATIO 1.1 (1.0-2.1); ALBUMIN 4.1 g/dL (3.5-5.0); CALCIUM 8.6 mg/dl (8.6-10.4); MAGNESIUM 1.9 mg/dL (1.6-2.3)
[2017-10-02] MEDS: Pantoprazole 40 mg EC Tab PO SCH (10:03)
[2017-10-02] MEDS: Omega-3-Acid Ethyl Esters 1 GM Cap PO SCH ×2 (10:03→17:13)
[2017-10-02] MEDS: Multivitamin With Minerals Tab PO SCH (10:03)
--- NOTE | 2017-10-02 11:26 | CP.PCM.PN ---
Subjective - Date & Time of Evaluation Date of Evaluation: 10/02/17 Time of Evaluation: 11:24 - Subjective Subjective: feels tired bleeding from catheter site yesterday pressure dressing applied no SB had HD yesterday ROS- as per HPI, other than that 10 point ROS negative Objective - Vital Signs/Intake and Output Vital Signs (last 24 hours): Temp Pulse Resp BP Pulse Ox 98.5 F 97 H 20 187/94 H 95 10/02/17 08:22 10/02/17 08:22 10/02/17 08:22 10/02/17 10:03 10/02/17 08:22 Intake and Output: 10/02/17 10/02/17 06:59 18:59 Intake Total 150 Balance 150 - Medications Medications: Current Medications Albuterol (Ventolin Hfa 90 Mcg/Actuation (8 G)) 2 puff IH Q4 PRN PRN Reason: Wheezing Amlodipine Besylate (Norvasc) 10 mg PO DAILY [facility] Last Admin: 10/02/17 10:03 Dose: 10 mg Calcium Acetate (Phoslo) 2,001 mg PO TIDCC [facility] Last Admin: 10/02/17 08:53 Dose: 2,001 mg Carvedilol (Coreg) 25 mg PO BID [facility] Last Admin: 10/02/17 10:03 Dose: 25 mg Cinacalcet (Sensipar) 30 mg PO DAILY [facility] Last Admin: 10/02/17 10:03 Dose: 30 mg Clonidine HCl (Catapres) 0.3 mg PO BID [facility] Last Admin: 10/02/17 10:03 Dose: 0.3 mg Multivitamins/Minerals (Therapeutic-M Tab) 1 tab PO DAILY [facility] Last Admin: 10/02/17 10:03 Dose: 1 tab [id number] Ethyl Esters (Lovaza) 1 gm PO BID [facility] Last Admin: 10/02/17 10:03 Dose: 1 gm Pantoprazole Sodium (Protonix Ec Tab) 40 mg PO DAILY [facility] Last Admin: 10/02/17 10:03 Dose: 40 mg Pneumococcal Polyvalent Vaccine (Pneumovax 23 Vaccine) 0.5 ml SC .ONCE ONE Stop: 10/03/17 10:01 Rosuvastatin Calcium (Crestor) 5 mg PO HS [facility] Last Admin: 10/01/17 21:15 Dose: 5 mg - Labs Labs: 10/02/17 07:52 10/02/17 07:52 PT 12.3 SECONDS (9.7-12.2) H 10/01/17 06:38 INR 1.1 10/01/17 06:38 APTT 33 SECONDS (21-34) 10/01/17 06:38 - Constitutional Appears: Well, Non-toxic - Head Exam Head Exam: ATRAUMATIC, NORMOCEPHALIC - Eye Exam Eye Exam: EOMI, PERRL - ENT Exam ENT Exam: Mucous Membranes Moist - Neck Exam Neck Exam: Full ROM - Respiratory Exam Respiratory Exam: Clear to Ausculation Bilateral. absent: Rhonchi, Wheezes - Cardiovascular Exam Cardiovascular Exam: REGULAR RHYTHM, +S1, +S2 - GI/Abdominal Exam GI & Abdominal Exam: Soft. absent: Tenderness - Extremities Exam Extremities Exam: Full ROM. absent: Pedal Edema - Neurological Exam Neurological Exam: Alert, Awake, Oriented x3 - Psychiatric Exam Psychiatric exam: Normal Affect, Normal Mood - Skin Skin Exam: Normal Color, Warm Assessment and Plan (1) ESRD (end stage renal disease) on dialysis Status: Acute (2) Problem with dialysis access Status: Acute (3) Anemia Status: Acute (4) Bleeding from dialysis shunt Status: Acute (5) HTN (hypertension) Status: Acute (6) Chronic congestive heart failure Status: Chronic - Assessment and Plan (Free Text) Plan: HD MWF hb stable needs fistulogram no culture results noted
[2017-10-02] MEDS ORDERED: Desmopressin 4 mcg/ml Inj (1 ml) SC ONE (13:45)
--- NOTE | 2017-10-02 14:09 | CP.PCM.PN ---
<Keron Riley - Last Filed: 10/02/17 13:57> Subjective - Date & Time of Evaluation Date of Evaluation: 10/02/17 Time of Evaluation: 08:35 - Subjective Subjective: PGY1 Medicine Note for Dr. Corona Patient seen and examined this morning. Patient has been experiencing bleeding from his permacath site. Objective - Vital Signs/Intake and Output Vital Signs (last 24 hours): Temp Pulse Resp BP Pulse Ox 98.5 F 97 H 20 187/94 H 95 10/02/17 08:22 10/02/17 08:22 10/02/17 08:22 10/02/17 10:03 10/02/17 08:22 Intake and Output: 10/02/17 10/02/17 06:59 18:59 Intake Total 150 Balance 150 - Medications Medications: Current Medications Albuterol (Ventolin Hfa 90 Mcg/Actuation (8 G)) 2 puff IH Q4 PRN PRN Reason: Wheezing Amlodipine Besylate (Norvasc) 10 mg PO DAILY [facility] Last Admin: 10/02/17 10:03 Dose: 10 mg Calcium Acetate (Phoslo) 2,001 mg PO TIDCC [facility] Last Admin: 10/02/17 12:38 Dose: 2,001 mg Carvedilol (Coreg) 25 mg PO BID [facility] Last Admin: 10/02/17 10:03 Dose: 25 mg Cinacalcet (Sensipar) 30 mg PO DAILY [facility] Last Admin: 10/02/17 10:03 Dose: 30 mg Clonidine HCl (Catapres) 0.3 mg PO BID [facility] Last Admin: 10/02/17 10:03 Dose: 0.3 mg Desmopressin Acetate (Ddavp) 30 mcg SC ONCE ONE Stop: 10/02/17 13:46 Multivitamins/Minerals (Therapeutic-M Tab) 1 tab PO DAILY [facility] Last Admin: 10/02/17 10:03 Dose: 1 tab [id number]-2-[id number] Ethyl Esters (Lovaza) 1 gm PO BID [facility] Last Admin: 10/02/17 10:03 Dose: 1 gm Pantoprazole Sodium (Protonix Ec Tab) 40 mg PO DAILY [facility] Last Admin: 10/02/17 10:03 Dose: 40 mg Pneumococcal Polyvalent Vaccine (Pneumovax 23 Vaccine) 0.5 ml SC .ONCE ONE Stop: 10/03/17 10:01 Rosuvastatin Calcium (Crestor) 5 mg PO HS [facility] Last Admin: 10/01/17 21:15 Dose: 5 mg - Labs Labs: 10/02/17 07:52 10/02/17 07:52 PT 12.3 SECONDS (9.7-12.2) H 10/01/17 06:38 INR 1.1 10/01/17 06:38 APTT 33 SECONDS (21-34) 10/01/17 06:38 - Constitutional Appears: Non-toxic, No Acute Distress - Head Exam Head Exam: ATRAUMATIC, NORMOCEPHALIC - Eye Exam Eye Exam: EOMI, Normal appearance Pupil Exam: NORMAL ACCOMODATION - ENT Exam ENT Exam: Mucous Membranes Moist - Respiratory Exam Respiratory Exam: Wheezes, NORMAL BREATHING PATTERN. absent: Accessory Muscle Use, Clear to Ausculation Bilateral, Rales, Rhonchi, Respiratory Distress Additional comments: Permacath in R IJ, dressing saturated with blood. residential real estate sales manager Noé called. New pressure dressing applied. - Cardiovascular Exam Cardiovascular Exam: REGULAR RHYTHM, +S1 - GI/Abdominal Exam GI & Abdominal Exam: Soft, Normal Bowel Sounds. absent: Distended, Firm, Guarding, Rigid, Tenderness - Extremities Exam Extremities Exam: absent: Calf Tenderness, Pedal Edema Additional comments: palpable thrill over left upper arm AV fistula - Neurological Exam Neurological Exam: Alert, Awake, Normal Gait, Oriented x3 - Psychiatric Exam Psychiatric exam: Normal Affect, Normal Mood - Skin Skin Exam: Dry, Warm Assessment and Plan - Assessment and Plan (Free Text) Plan: ESRD on HD (MWF) Gen. Surg Consult, Dr. Guerra Nephro consult, Dr. Neri Patient scheduled to have R IJ Permacath placed on 10/01/17, with Dr. Guerra. f/u surgery recs * Pressure dressing applied * Desmopressin 30mcg SC given once for continuous bleeding. f/u nephro recs * Needs fistulogram * HD MWF HTN continue home medications * Amlodipine 10mg PO daily * Carvedilol 25mg PO BID * Clonidine 0.3mg PO BID * Crestor 5mg PO HS Prophylactic Care continue home medications * Albuterol HFA 2 puff IH q4 PRN * Phoslo 2001mg PO TIDCC * Cinacalcet 30mg PO daily * Multimineral/Multivitamin 1 tab PO daily * Protonix 40mg PO daily Case discussed with Dr. Chloe Riley PGY1 <Joaquín Corona H - Last Filed: 10/02/17 15:40> Objective - Vital Signs/Intake and Output Vital Signs (last 24 hours): Temp Pulse Resp BP Pulse Ox 98.5 F 62 20 173/87 H 95 10/02/17 08:22 10/02/17 13:10 10/02/17 08:22 10/02/17 13:10 10/02/17 08:22 Intake and Output: 10/02/17 10/02/17 06:59 18:59 Intake Total 150 Balance 150 - Medications Medications: Current Medications Albuterol (Ventolin Hfa 90 Mcg/Actuation (8 G)) 2 puff IH Q4 PRN PRN Reason: Wheezing Amlodipine Besylate (Norvasc) 10 mg PO DAILY [facility] Last Admin: 10/02/17 10:03 Dose: 10 mg Calcium Acetate (Phoslo) 2,001 mg PO TIDCC [facility] Last Admin: 10/02/17 12:38 Dose: 2,001 mg Carvedilol (Coreg) 25 mg PO BID [facility] Last Admin: 10/02/17 10:03 Dose: 25 mg Cinacalcet (Sensipar) 30 mg PO DAILY [facility] Last Admin: 10/02/17 10:03 Dose: 30 mg Clonidine HCl (Catapres) 0.3 mg PO BID [facility] Last Admin: 10/02/17 10:03 Dose: 0.3 mg Aminocaproic Acid 4,000 mg/ (Sodium Chloride) 250 mls @ 62.5 mls/hr IV ONCE ONE Stop: 10/02/17 19:59 Multivitamins/Minerals (Therapeutic-M Tab) 1 tab PO DAILY [facility] Last Admin: 10/02/17 10:03 Dose: 1 tab Vesle-8-Ledz Ethyl Esters (Lovaza) 1 gm PO BID [facility] Last Admin: 10/02/17 10:03 Dose: 1 gm Pantoprazole Sodium (Protonix Ec Tab) 40 mg PO DAILY [facility] Last Admin: 10/02/17 10:03 Dose: 40 mg Pneumococcal Polyvalent Vaccine (Pneumovax 23 Vaccine) 0.5 ml SC .ONCE ONE Stop: 10/03/17 10:01 Rosuvastatin Calcium (Crestor) 5 mg PO [facility] Last Admin: 10/01/17 21:15 Dose: 5 mg - Labs Labs: 10/02/17 07:52 10/02/17 07:52 PT 12.3 SECONDS (9.7-12.2) H 10/01/17 06:38 INR 1.1 10/01/17 06:38 APTT 33 SECONDS (21-34) 10/01/17 06:38 Attending/Attestation - Attestation I have personally seen and examined this patient.: Yes I have fully participated in the care of the patient.: Yes I have reviewed all pertinent clinical information, including history, physical exam and plan: Yes Notes (Text): 10/02/17 15:40 Medical attending: Patient was seen and examined by me, agrees the above note by the director of medical education. Patient was not in any acute distress this morning, overnight he had some very slow bleeding permacath area. Overnight they tried extra packing there however as of this morning there was still small amount of bleeding. He is not in any distress he is not short of breath he is not having any chest pain. He does report some tenderness over the site. His hemoglobin is stable We tried to order IV desmopressin 0.4 MCG's per kilogram however I was notified by the floor nurses that the patient has to be in the ICU in order to give desmopressin. Then I was notified by the nursing preparation supervisor canning that I could not give the desmopressin I spoke with pharmacy about the desmopressin, I realized there is intranasal as well as oral desmopressin, but these routes are not indicated for use in uremic bleeding So instead we'll try one-time dose of Amicar 4 g to be given to him over 3-4 hours as this can be given on the general medical floor Thank you very much, Joaquín Corona
[2017-10-02] MEDS ORDERED: SODIUM CHLORIDE 0.9% IV ONE (16:00)
[2017-10-02] MEDS ORDERED: AMINOCAPROIC ACID IV ONE (16:00)
[2017-10-02] MEDS ORDERED: Desmopressin 20 MCG in Sodium Chloride 0.9% 50 ML IV ONE (23:45)
--- NOTE | 2017-10-03 08:10 | CP.PCM.PCO ---
Physician Communication Note - Physician Communication Note Physician Communication Note: OR today 1030 for permacath revision
[2017-10-03] MEDS: Omega-3-Acid Ethyl Esters 1 GM Cap PO SCH ×2 (09:14→17:44)
[2017-10-03] MEDS: Pantoprazole 40 mg EC Tab PO SCH ×2 (09:15→12:30)
[2017-10-03] MEDS: Multivitamin With Minerals Tab PO SCH ×2 (09:15→12:30)
[2017-10-03] MEDS ORDERED: Pneumococcal 23-Valent Vaccine SC ONE (10:00)
[2017-10-03] MEDS ORDERED: Influenza Vaccine 60 mcg/0.5 mL SYR (4YR UP) IM ONE (10:00)
[2017-10-03] MEDS ORDERED: Lidocaine 1% Inj (20ml) ONE (10:17)
[2017-10-03] MEDS ORDERED: HEPARIN-NS 5,000 UNITS/500 ML 5,000 UNIT/500 ML BAG IV ONE (10:17)
[2017-10-03] MEDS ORDERED: Iodixanol 320 MG/ML 200 ML BOTTLE IV ONE (10:18)
[2017-10-03] MEDS ORDERED: Lidocaine 1%/Epinephrine 1:100000 30 ml vial IJ ONE (10:26)
[2017-10-03] MEDS ORDERED: Sodium Chloride 0.9% 1,000 ML IV ONE (10:40)
[2017-10-03] MEDS ORDERED: Midazolam 2 MG/2 ML VIAL ONE (10:48)
[2017-10-03] MEDS ORDERED: ceFAZolin IV 1 gm in Dextrose 1 GM/50 ML BAG IVPB ONE (10:49)
[2017-10-03] MEDS ORDERED: Labetalol 25mg/5ml Syringe ONE (10:58)
--- NOTE | 2017-10-03 11:19 | PCM.SURG1 ---
Surgeon's Initial Post Op Note - Surgeon's Notes Surgeon: Dr. Guerra Remote Encoding Operations Supervisor: Dr. Peraza PGY2 Type of Anesthesia: General Endo Pre-Operative Diagnosis: Bleeding Permacath Operative Findings: See Operative Note Post-Operative Diagnosis: Bleeding Permacath Site Operation Performed: Revision and replacement of permacath Specimen/Specimens Removed: Permacath Estimated Blood Loss: EBL {In ML}: 10 Blood Products Given: N/A Drains Used: No Drains Post-Op Condition: Good Date of Surgery/Procedure: 10/03/17 Time of Surgery/Procedure: 11:23
--- NOTE | 2017-10-03 14:08 | RAD ---
HISTORY: Post op permacath COMPARISON: Comparison is made to previous same-day exam FINDINGS: LUNGS: Mild pulmonary vascular congestion is noted more prominent compared to the previous exam. PLEURA: No significant pleural effusion identified, no pneumothorax apparent. CARDIOVASCULAR: Right-sided hemodialysis catheter is again seen in place. The cardiac silhouette is prominent in size. OSSEOUS STRUCTURES: No significant abnormalities. VISUALIZED UPPER ABDOMEN: Normal. OTHER FINDINGS: None. IMPRESSION: Appropriate position of the right-sided hemodialysis catheter. Interval slight worsening of pulmonary vascular congestion since the previous study.
[2017-10-03 15:52] VITALS: BP 172/90; PULSE 62; RESP 20; TEMP 97.6; O2SAT 99
[2017-10-03 17:11] LABS: CALCIUM 8.9 mg/dl (8.6-10.4)
--- NOTE | 2017-10-03 17:20 | CP.PCM.PN ---
Subjective - Date & Time of Evaluation Date of Evaluation: 10/03/17 Time of Evaluation: 07:45 - Subjective Subjective: PGY1 Medicine Note for Dr. Corona Patient seen and examined in the morning. Patient given Amicar 4 g to be over 3 -4 hours as this can be given on the general medical floor and there was a discrepancy with the ability to push Desmopressin on the floor yesterday. The bleeding did not stop, so she was given Desmopressin. The patient's bleeding from his dialysis catheter continued throughout the night. Patient was scheduled to go back to the OR with Dr. Guerra to evaluate the permacath. The permacath was replaced. The patient states that he is feeling fine. He just wants the bleeding to stop so he can go home sooner rather than later. He denies any complaints at this time. Objective - Vital Signs/Intake and Output Vital Signs (last 24 hours): Temp Pulse Resp BP Pulse Ox 97.6 F 62 20 172/90 H 99 10/03/17 15:00 10/03/17 15:00 10/03/17 15:00 10/03/17 15:00 10/03/17 15:00 Intake and Output: 10/03/17 10/03/17 06:59 18:59 Intake Total 820 50 Output Total 0 Balance 820 50 - Medications Medications: Current Medications Albuterol (Ventolin Hfa 90 Mcg/Actuation (8 G)) 2 puff IH Q4 PRN PRN Reason: Wheezing Amlodipine Besylate (Norvasc) 10 mg PO DAILY [facility] Last Admin: 10/03/17 09:13 Dose: 10 mg Calcium Acetate (Phoslo) 2,001 mg PO TIDCC [facility] Last Admin: 10/03/17 12:30 Dose: 2,001 mg Carvedilol (Coreg) 25 mg PO BID [facility] Last Admin: 10/03/17 09:13 Dose: 25 mg Cinacalcet (Sensipar) 30 mg PO DAILY [facility] Last Admin: 10/03/17 12:30 Dose: 30 mg Clonidine HCl (Catapres) 0.3 mg PO BID [facility] Last Admin: 10/03/17 09:14 Dose: 0.3 mg Multivitamins/Minerals (Therapeutic-M Tab) 1 tab PO DAILY [facility] Last Admin: 10/03/17 12:30 Dose: 1 tab Xlsdd-3-Fewm Ethyl Esters (Lovaza) 1 gm PO BID [facility] Last Admin: 10/03/17 09:14 Dose: Not Given Pantoprazole Sodium (Protonix Ec Tab) 40 mg PO DAILY [facility] Last Admin: 10/03/17 12:30 Dose: 40 mg Pneumococcal Polyvalent Vaccine (Pneumovax 23 Vaccine) 0.5 ml SC .ONCE ONE Stop: 10/04/17 10:01 Rosuvastatin Calcium (Crestor) 5 mg PO HS [facility] Last Admin: 10/02/17 21:36 Dose: 5 mg - Labs Labs: 10/02/17 07:52 10/02/17 07:52 PT 12.3 SECONDS (9.7-12.2) H 10/01/17 06:38 INR 1.1 10/01/17 06:38 APTT 33 SECONDS (21-34) 10/01/17 06:38 - Constitutional Appears: Non-toxic, No Acute Distress - Head Exam Head Exam: ATRAUMATIC, NORMOCEPHALIC - Eye Exam Eye Exam: EOMI, Normal appearance - ENT Exam ENT Exam: Mucous Membranes Moist - Respiratory Exam Respiratory Exam: Clear to Ausculation Bilateral, NORMAL BREATHING PATTERN. absent: Accessory Muscle Use, Rales, Rhonchi, Wheezes, Respiratory Distress - Cardiovascular Exam Cardiovascular Exam: REGULAR RHYTHM, +S1 Additional comments: Permacath in R IJ, dressing strike through with blood - dressing just changed. - GI/Abdominal Exam GI & Abdominal Exam: Soft, Normal Bowel Sounds. absent: Distended, Firm, Guarding, Rigid, Tenderness - Extremities Exam Extremities Exam: Normal Inspection. absent: Calf Tenderness, Pedal Edema Additional comments: palpable thrill over left upper arm AV fistula - Neurological Exam Neurological Exam: Alert, Awake, CN II-XII Intact, Oriented x3 - Psychiatric Exam Psychiatric exam: Normal Affect, Normal Mood - Skin Skin Exam: Dry, Warm Assessment and Plan - Assessment and Plan (Free Text) Plan: ESRD on HD (MWF) Gen. Surg Consult, Dr. Guerra Nephro consult, Dr. Neri R IJ Permacath replaced on 10/03/17, with Dr. Guerra. f/u surgery recs * monitor for re-bleed * If ok with patient, will plan for revision of AV fistula or graft on Wednesday f/u nephro recs * HD MWF Blood cultures (10/01/17) - negative at 48 hours HTN continue home medications * Amlodipine 10mg PO daily * Carvedilol 25mg PO BID * Clonidine 0.3mg PO BID * Crestor 5mg PO HS Prophylactic Care continue home medications * Albuterol HFA 2 puff IH q4 PRN * Phoslo 2001mg PO TIDCC * Cinacalcet 30mg PO daily * Multimineral/Multivitamin 1 tab PO daily * Protonix 40mg PO daily Case discussed with Dr. Chloe Cabrales Rosemary PGY1
--- NOTE | 2017-10-03 18:16 | RAD ---
PROCEDURE: Intraoperative Fluoroscopy. HISTORY: RENAL FAILURE FINDINGS: Fluoroscopic assistance was provided for right-sided hemodialysis catheter insertion. Please refer to the operative report from
--- NOTE | 2017-10-03 18:18 | CP.PCM.DIS ---
Provider - Provider Date of Admission: 10/01/17 06:25 Attending physician: Steve De La O MD Consults: Vascular Surg - Neihart Nephro - Daron Time Spent in preparation of Discharge (in minutes): 30 Hospital Course - Lab Results Lab Results: Micro Results 10/01/17 16:15 Blood-During Dialysis Blood Culture - Preliminary NO GROWTH AFTER 48 HOURS 10/01/17 16:00 Blood-During Dialysis Blood Culture - Preliminary NO GROWTH AFTER 48 HOURS Most Recent Lab Values WBC 5.2 K/uL (4.8-10.8) 10/02/17 07:52 RBC 3.27 Mil/uL (4.40-5.90) L 10/02/17 07:52 Hgb 10.2 g/dL (12.0-18.0) L 10/02/17 07:52 Hct 30.4 % (35.0-51.0) L 10/02/17 07:52 MCV 93.0 fL (80.0-94.0) 10/02/17 07:52 MCH 31.3 pg (27.0-31.0) H 10/02/17 07:52 MCHC 33.7 g/dL (33.0-37.0) 10/02/17 07:52 RDW 17.3 % (11.5-14.5) H 10/02/17 07:52 Plt Count 354 K/uL (130-400) 10/02/17 07:52 MPV 7.6 fL (7.2-11.7) 10/02/17 07:52 Neut % (Auto) 59.8 % (50.0-75.0) 10/02/17 07:52 Lymph % (Auto) 18.0 % (20.0-40.0) L 10/02/17 07:52 [place] % (Auto) 19.4 % (0.0-10.0) H 10/02/17 07:52 Eos % (Auto) 1.4 % (0.0-4.0) 10/02/17 07:52 Baso % (Auto) 1.4 % (0.0-2.0) 10/02/17 07:52 Neut # 3.1 K/uL (1.8-7.0) 10/02/17 07:52 Lymph # 0.9 K/uL (1.0-4.3) L 10/02/17 07:52 [place] # 1.0 K/uL (0.0-0.8) H 10/02/17 07:52 Eos # 0.1 K/uL (0.0-0.7) 10/02/17 07:52 Baso # 0.1 K/uL (0.0-0.2) 10/02/17 07:52 Neutrophils % (Manual) 50 % (50-75) 10/01/17 06:38 Band Neutrophils % 2 % (0-2) 10/01/17 06:38 Lymphocytes % (Manual) 29 % (20-40) 10/01/17 06:38 Monocytes % (Manual) 18 % (0-10) H 10/01/17 06:38 Eosinophils % (Manual) 1 % (0-4) 10/01/17 06:38 Platelet Estimate Normal (NORMAL) 10/01/17 06:38 Large Platelets Present 10/01/17 06:38 Giant Platelets Present 10/01/17 06:38 Hypochromasia (manual) Moderate 10/01/17 06:38 Poikilocytosis (manual Moderate 10/01/17 06:38 Anisocytosis (manual) Moderate 10/01/17 06:38 Microcytosis (manual) Slight 10/01/17 06:38 Macrocytosis (manual) Slight 10/01/17 06:38 Tear Drop Cells Slight 10/01/17 06:38 Ovalocytes Moderate 10/01/17 06:38 PT 12.3 SECONDS (9.7-12.2) H 10/01/17 06:38 INR 1.1 10/01/17 06:38 APTT 33 SECONDS (21-34) 10/01/17 06:38 Sodium 136 mmol/L (132-148) 10/03/17 16:34 Potassium 5.1 mmol/L (3.6-5.2) 10/03/17 16:34 Chloride 94 mmol/L (98-107) L 10/03/17 16:34 Carbon Dioxide 28 mmol/L (22-30) 10/03/17 16:34 Anion Gap 19 (10-20) 10/03/17 16:34 BUN 56 mg/dL (9-20) H 10/03/17 16:34 Creatinine 13.2 mg/dL (0.8-1.5) H* D 10/03/17 16:34 Est GFR ( Amer) 5 10/03/17 16:34 Est GFR (Non-Af Amer) 4 10/03/17 16:34 POC Glucose (mg/dL) 74 mg/dL (65-110) 10/01/17 05:55 Random Glucose 94 mg/dL (75-110) 10/03/17 16:34 Calcium 8.9 mg/dl (8.6-10.4) 10/03/17 16:34 Phosphorus 3.4 mg/dL (2.5-4.5) 10/02/17 07:52 Magnesium 1.9 mg/dL (1.6-2.3) 10/02/17 07:52 Total Bilirubin 0.8 mg/dL (0.2-1.3) 10/02/17 07:52 AST 17 U/L (17-59) 10/02/17 07:52 ALT 12 U/L (21-72) L 10/02/17 07:52 Alkaline Phosphatase 61 U/L (38-126) 10/02/17 07:52 Total Protein 8.0 g/dL (6.3-8.3) 10/02/17 07:52 Albumin 4.1 g/dL (3.5-5.0) 10/02/17 07:52 Globulin 3.9 gm/dL (2.2-3.9) 10/02/17 07:52 Albumin/Globulin Ratio 1.1 (1.0-2.1) 10/02/17 07:52 Blood Type A POSITIVE 10/01/17 06:38 Antibody Screen Negative 10/01/17 06:38 Discharge Exam - Head Exam Head Exam: ATRAUMATIC, NORMOCEPHALIC Discharge Plan - Follow Up Plan Condition: STABLE Disposition: HOME/ ROUTINE Instructions: Dialysis Diet (DC), Chronic Hypertension (DC), End Stage Kidney Disease (DC) Additional Instructions: Patient is to be discharged home per Dr. Corona and Dr. Guerra. Patient is to follow up with his Dr. Guerra in his office. Please call and schedule an appointment for AV fistula/graft revision and Permacath follow up. The patient was given no new prescriptions and is directed to continue to take his home medications as directed by his primary care physician. Referrals: Lan Guerra Jr., MD [Staff Provider] -
--- NOTE | 2017-10-03 19:53 | OP ---
PROCEDURE DATE: 10/03/2017 PREOPERATIVE DIAGNOSIS: Bleeding from Perm-A-Cath site. POSTOPERATIVE DIAGNOSIS: Bleeding from Perm-A-Cath site. PROCEDURE CARRIED OUT: Revision of Perm-A-Cath with removal of old and placement of new Perm-A-Cath via right jugular vein. SURGEON: Lan Guerra Jr., MD BOX SEALING MACHINE CATCHER: Dr. Donaldson, resident. ANESTHESIA ADMINISTERED BY: Dr. Basurto. INDICATIONS: The patient is a 57-year-old man with renal insufficiency, admitted 2 days ago, had to have emergency placement of a dialysis catheter. Since then, he has had continued oozing from the exit site. DESCRIPTION OF PROCEDURE: We were unable to clearly identify the site of bleeding. The old catheter was removed and the entrance site was preserved. We clamped this. We did not cauterize. We injected Marcaine with epinephrine and oversewed the exit site to control the bleeding. We then placed a new catheter and brought it out somewhat lateral to site. There was excellent flow. Patient tolerated the procedure well. Blood loss of the procedure was 25 mL. The operation carried out is removal of old Perm-A-Cath, placement of new one and control of bleeding. Lan Guerra Jr., MD
[2017-10-04] MEDS ORDERED: Pneumococcal 23-Valent Vaccine SC ONE (10:00)
[2017-10-04] MEDS ORDERED: Influenza Vaccine 60 mcg/0.5 mL SYR (4YR UP) IM ONE (10:00)
--- NOTE | 2017-10-05 19:54 | CARD ---
APPROVED REPORT EKG Measurement Heart [id number] <Conclusion> Normal sinus rhythm Possible Left atrial enlargement Left axis deviation Anterolateral infarct, age undetermined Abnormal ECG
== END 2017-10-03 18:50 | disposition home or self-care (01) | DRG 314 ==
LOC: C.ER 05:50 → C.3T 06:25
PROVIDERS: ADMIT Internal Medicine; ATTEND Internal Medicine
PROC: 02HV33Z Insertion of Infusion Device into Superior Vena Cava, Percutaneous Approach (ICD-10-PCS; 2017-10-01)
PROC: B518ZZA Fluoroscopy of Superior Vena Cava, Guidance (ICD-10-PCS; 2017-10-01)
PROC: 5A1D70Z Performance of Urinary Filtration, Intermittent, Less than 6 Hours Per Day (ICD-10-PCS; 2017-10-01)
PROC: 0JH63XZ Insertion of Tunneled Vascular Access Device into Chest Subcutaneous Tissue and Fascia, Percutaneous Approach (ICD-10-PCS; principal; 2017-10-01 11:45)
PROC: 0JWT3XZ Revision of Tunneled Vascular Access Device in Trunk Subcutaneous Tissue and Fascia, Percutaneous Approach (ICD-10-PCS; 2017-10-03)
PROC: 02HV33Z Insertion of Infusion Device into Superior Vena Cava, Percutaneous Approach (ICD-10-PCS; 2017-10-03)
PROC: B518ZZA Fluoroscopy of Superior Vena Cava, Guidance (ICD-10-PCS; 2017-10-03)
DX: T82.510A Breakdown (mechanical) of surgically created arteriovenous fistula, initial encounter (principal); N18.6 End stage renal disease; I13.2 Hypertensive heart and chronic kidney disease with heart failure and with stage 5 chronic kidney disease, or end stage renal disease; L98.499 Non-pressure chronic ulcer of skin of other sites with unspecified severity; T82.838A Hemorrhage due to vascular prosthetic devices, implants and grafts, initial encounter; I50.9 Heart failure, unspecified; J44.9 Chronic obstructive pulmonary disease, unspecified; I25.10 Atherosclerotic heart disease of native coronary artery without angina pectoris; D64.9 Anemia, unspecified; Y71.2 Prosthetic and other implants, materials and accessory cardiovascular devices associated with adverse incidents; F17.210 Nicotine dependence, cigarettes, uncomplicated; Z99.2 Dependence on renal dialysis; Z86.73 Personal history of transient ischemic attack (TIA), and cerebral infarction without residual deficits

== ENCOUNTER 2017-10-04 08:14 | Inpatient (IN) | payer MEDICARE, MEDICAID ==
[2017-10-04 08:27] VITALS: BMI 16.7
--- NOTE | 2017-10-04 09:08 | CP.PCM.CON ---
History of Present Illness - History of Present Illness History of Present Illness: General surgery progress note for Dr. Guerra-Karen Bullock, PGY-1 Pt S & E at bedside. 57M w/PMH sig for ESRD on HD with recent permacath placment x 2. Pt reports recent discharge from hospital due to vascular access placement, had some bleeding at permacath insertion site. Permacath was removed from site and replaced. This AM pt was moving his R arm and noted blood from permacath site, so pt presented to ED for evaluation. Admits to some tenderness at permacath insertion site over R chest wall. Denies other complaints. PMH: ESRD on HD (MWF), HTN PSH: Permacath placement x 2; R nephrectomy (39 yrs ago), L AVF (2011) All: NKDA SH: Admits to tobacco use, 1/2 ppd x 30+ yrs, denies ETOH or illicit drug use Vascular surgeon: Dr. Guerra Review of Systems - Review of Systems All systems: reviewed and no additional remarkable complaints except - Constitutional Constitutional: absent: Chills, Fever - EENT Eyes: absent: Change in Vision Nose/Mouth/Throat: absent: Sore Throat - Cardiovascular Cardiovascular: absent: Chest Pain - Respiratory Respiratory: absent: Cough - Gastrointestinal Gastrointestinal: absent: Abdominal Pain, Nausea, Vomiting - Musculoskeletal Musculoskeletal: absent: Neck Pain - Neurological Neurological: absent: Syncope - Psychiatric Psychiatric: absent: Anxiety Past Patient History - Infectious Disease Hx of Infectious Diseases: None - Past Medical History & Family History Past Medical History?: Yes - Past Social History Smoking Status: Heavy Smoker > 10 Cigarettes Daily - CARDIAC Hx Congestive Heart Failure: Yes Hx Hypertension: Yes - PULMONARY Hx Chronic Obstructive Pulmonary Disease (COPD): Yes - NEUROLOGICAL Hx Neurological Disorder: Yes HX Cerebrovascular Accident: Yes - HEENT Hx HEENT Problems: No - RENAL Hx Chronic Kidney Disease: Yes - ENDOCRINE/METABOLIC Hx Endocrine Disorders: No - HEMATOLOGICAL/ONCOLOGICAL Hx Anemia: Yes - INTEGUMENTARY Hx Dermatological Problems: No - MUSCULOSKELETAL/RHEUMATOLOGICAL Hx Falls: No - GASTROINTESTINAL Hx Gastrointestinal Disorders: No - GENITOURINARY/GYNECOLOGICAL Hx Genitourinary Disorders: No - PSYCHIATRIC Hx Psychophysiologic Disorder: No Hx Substance Use: No - SURGICAL HISTORY Hx Surgeries: Yes Hx Arteriovenous Shunt: Yes Hx Vascular Access Device: Yes Other/Comment: nephrectomy hx at age 18 - ANESTHESIA Hx Anesthesia: Yes Hx Anesthesia Reactions: No Hx Malignant Hyperthermia: No Meds Allergies/Adverse Reactions: Allergies Allergy/AdvReac Type Severity Reaction Status Date / Time No Known Allergies Allergy Verified 10/04/17 08:27 Physical Exam - Constitutional Appears: Non-toxic, No Acute Distress - Head Exam Head Exam: ATRAUMATIC, NORMAL INSPECTION, NORMOCEPHALIC - Eye Exam Eye Exam: EOMI, Normal appearance - ENT Exam ENT Exam: Mucous Membranes Moist, Normal Exam - Neck Exam Neck exam: Positive for: Normal Inspection Additional comments: Right neck dressing in place- clean/dry/intact - Respiratory Exam Respiratory Exam: Chest Wall Tenderness (over right chest wall permacath insertion site- dressing saturated with sanginous output, clots present, no active bleeding noted), NORMAL BREATHING PATTERN - Cardiovascular Exam Cardiovascular Exam: REGULAR RHYTHM, +S1, +S2 - GI/Abdominal Exam GI & Abdominal Exam: Soft - Extremities Exam Extremities exam: Positive for: normal inspection - Neurological Exam Neurological exam: Alert, CN II-XII Intact, Oriented x3 - Psychiatric Exam Psychiatric exam: Normal Affect, Normal Mood - Skin Skin Exam: Dry, Intact, Normal Color, Warm Results - Vital Signs Recent Vital Signs: Last Vital Signs Temp 97.7 F 10/04/17 08:15 Pulse 71 10/04/17 08:15 Resp 20 10/04/17 08:15 BP 209/109 H 10/04/17 08:15 Pulse Ox 100 10/04/17 08:15 Assessment & Plan - Assessment and Plan (Free Text) Assessment: 57M w/PMH sig for ESRD on HD with bleeding from permacath insertion site over Right chest wall Plan: Dressing changed Pressure dressing applied as per Dr. Guerra's instructions Ok for HD DW attending Ara, PGY-1 - Date & Time Date: 10/04/17 Time: 09:13
--- NOTE | 2017-10-04 10:10 | C.PDOC ---
History Of Present Illness Patient presents to ED c/o bleeding from dialysis catheter site since this morning. Patient was discharged yesterday after visit for catheter insertion, had bleeding during hospital stay and catheter was revised. Patient has h/o ESRD on HD, last dialysis was wednesday. Patient is due for dialysis today but did not go due to bleeding. He denies chest pain, SOB, palpitations, fever, cough. Time Seen by Provider: 10/04/17 08:17 Chief Complaint (Nursing): Vascular Access Device Problem History Per: Patient History/Exam Limitations: no limitations Onset/Duration Of Symptoms: Hrs Current Symptoms Are (Timing): Better Severity: Mild Past Medical History Reviewed: Historical Data, Nursing Documentation, Vital Signs Vital Signs: Last Vital Signs Temp 97.4 F L 10/04/17 17:33 Pulse 63 10/04/17 18:48 Resp 18 10/04/17 18:48 BP 181/95 H 10/04/17 17:33 Pulse Ox 96 10/04/17 17:33 - Medical History PMH: Anemia, CAD, CHF, COPD, HTN, End Stage Renal Disease (dialysis M/W/F), Chronic Kidney Disease - [facility] Procedures (10/01/17) FLUOROSCOPY OF SUPERIOR VENA CAVA, GUIDANCE (10/01/17) HEMODIALYSIS (10/16/14) INSERTION OF INFUSION DEV INTO SUP VENA CAVA, PERC APPROACH (10/01/17) INSERTION OF VAD INTO CHEST SUBCU/FASCIA, PERC APPROACH (10/01/17) REVISION OF VAD IN TRUNK SUBCU/FASCIA, PERC APPROACH (10/01/17) Family History: States: No Known Family Hx - Social History Hx Tobacco Use: Yes Hx Alcohol Use: No Hx Substance Use: No - Immunization History Hx Tetanus Toxoid Vaccination: No Hx Influenza Vaccination: Yes Hx Pneumococcal Vaccination: Yes Review Of Systems Except As Marked, All Systems Reviewed And Found Negative. Constitutional: Positive for: Other (bleeding from dialysis catheter). Negative for: Fever, Chills Cardiovascular: Negative for: Chest Pain, Palpitations Respiratory: Negative for: Cough, Shortness of Breath Gastrointestinal: Negative for: Abdominal Pain Physical Exam - Physical Exam Appears: Well, Non-toxic, No Acute Distress Skin: Normal Color, Warm, Dry, No Rash Oral Mucosa: Moist Chest: Other (right upper chest dialysis catheter with surrounding clot, on obvious active bleeding) Cardiovascular: Rhythm Regular Respiratory: Normal Breath Sounds, No Rales, No Rhonchi, No Wheezing Gastrointestinal/Abdominal: Normal Exam, Bowel Sounds, Soft, No Tenderness Extremity: Normal ROM, No Pedal Edema, No Calf Tenderness Pulses: Left Dorsalis Pedis: Normal, Right Dorsalis Pedis: Normal Neurological/Psych: Oriented x3 ED Course And Treatment - Laboratory Results Result Diagrams: 10/04/17 10:12 10/04/17 10:12 ECG: Interpreted By Me, Viewed By Me (sinus rhythm 67 bpm, first degree AV block , left axis deviation, T waves peaked in V2-V5, T wave inversions I, aVL, no acute ST changes) ECG Interpretation: Abnormal O2 Sat by Pulse Oximetry: 100 (RA) Pulse Ox Interpretation: Normal - Radiology CXR: Interpreted by Me, Viewed By Me CXR Interpretation: Yes: No Acute Disease. No: Infiltrates Progress Note: Spoke with Dr. Guerra, and patient evaluated by surgery resident, who placed pressure dressing on area. Discussed patient with neprhologist Dr. Neri, patient's hemodialysis site ([facility]) is closed today, will need admission for dialysis. Calcium gluconate given due to hyperkalemia with peaked T waves on EKG - patient to be dialyzed today. - Physician Consult Information Physician Contacted: Joaquín Corona Outcome Of Conversation: Discussed patient with Dr. Corona, agrees with admission for hyperkalemia, ESRD needing HD, bleeding from permacath. Critical Care Time - Critical Care Note Total Time (in mins): 35 Documented critical care: time excludes all time spent performing seperately billable procedures. Disposition - Disposition Disposition: HOSPITALIZED Disposition Time: 11:42 Condition: STABLE - Clinical Impression Clinical Impression: ESRD (end stage renal disease), Hyperkalemia, Bleeding due to dialysis catheter placement, ESRD needing dialysis
[2017-10-04 10:17] LABS: BASO # 0.1 K/uL (0.0-0.2); BASO % 1.1 % (0.0-2.0); EOS # 0.1 K/uL (0.0-0.7); EOS % 1.5 % (0.0-4.0); HEMOGLOBIN 9.8 g/dL (12.0-18.0); LYMPH # 1.1 K/uL (1.0-4.3); LYMPH % 11.9 % (20.0-40.0); MEAN CORPUSCULAR HEMOGLOBIN 31.6 pg (27.0-31.0); MEAN CORPUSCULAR HGB CONC 33.7 g/dL (33.0-37.0); MEAN PLATELET VOLUME 7.7 fL (7.2-11.7); MONO # 0.8 K/uL (0.0-0.8); MONO % 8.8 % (0.0-10.0); NEUT # 7.1 K/uL (1.8-7.0); NEUT % 76.7 % (50.0-75.0); RBC 3.11 Mil/uL (4.40-5.90); RED CELL DISTRIBUTION WIDTH 17.4 % (11.5-14.5); WHITE BLOOD COUNT 9.3 K/uL (4.8-10.8)
[2017-10-04 10:29] LABS: INR 1.1; PROTHROMBIN TIME 11.9 SECONDS (9.7-12.2)
[2017-10-04 11:07] LABS: ALB/GLOB RATIO 1.1 (1.0-2.1); ALBUMIN 4.6 g/dL (3.5-5.0); CALCIUM 9.3 mg/dl (8.6-10.4)
[2017-10-04] MEDS ORDERED: Calcium Gluconate 4.65 MEQ in Dextrose 5% In Water 100 ML IV STA (11:42)
--- NOTE | 2017-10-04 12:00 | RAD ---
PROCEDURE: CHEST RADIOGRAPH, 1 VIEW HISTORY: SOB COMPARISON: Comparison is made with 10/03/2017 FINDINGS: LUNGS: No significant interval change in the lungs noted since the previous study. No evidence of new infiltrate or consolidation in the lungs. Mild pulmonary vascular congestion. PLEURA: No pneumothorax or pleural fluid seen. CARDIOVASCULAR: Right-sided hemodialysis catheter is again seen in place. The cardiac silhouette is prominent in size. OSSEOUS STRUCTURES: No significant abnormalities. VISUALIZED UPPER ABDOMEN: Normal. OTHER FINDINGS: None. IMPRESSION: Mild pulmonary vascular congestion. No significant interval change.
[2017-10-04] MEDS ORDERED: Calcium Gluconate 4.65 mEq/10 ml Inj ONE (12:08)
--- NOTE | 2017-10-04 14:17 | CP.PCM.CON ---
History of Present Illness - History of Present Illness History of Present Illness: 57M w/PMH sig for ESRD on HD with recent permacath placment x 2. Pt reports recent discharge from hospital due to vascular access placement, had some bleeding at permacath insertion site. Permacath was removed from site and replaced. This AM pt was moving his R arm and noted blood from permacath site, so pt presented to ED for evaluation. Admits to some tenderness at permacath insertion site over R chest wall. Denies other complaints. PMH: ESRD on HD (MWF), HTN PSH: Permacath placement x 2; R nephrectomy (39 yrs ago), L AVF (2011) All: NKDA SH: Admits to tobacco use, 1/2 ppd x 30+ yrs, denies ETOH or illicit drug use Vascular surgeon: Dr. Guerra Seen at dialysis Missed dilaysis as outpt- being done now Bleeding at exit site treated by compression Will need surgical follow up for AV fistula malfunction. Review of Systems - Constitutional Constitutional: Fatigue, Weakness - EENT Eyes: absent: As Per HPI, Blind Spots, Blurred Vision, Change in Vision, Decreased Night Vision, Diplopia, Discharge, Dry Eye, Exophthalmos, Floaters, Irritation, Itchy Eyes, Loss of Peripheral Vision, Pain, Photophobia, Requires Corrective Lenses, Sees Flashes, Spots in Vision, Tunnel Vision, Other Visual Disturbances, Loss of Vision, Other Ears: absent: As Per HPI, Decreased Hearing, Ear Discharge, Ear Pain, Tinnitus, Abnormal Hearing, Disequilibrium, Dizziness, Other Nose/Mouth/Throat: absent: As Per HPI, Epistaxis, Nasal Congestion, Nasal Discharge, Nasal Obstruction, Nasal Trauma, Nose Pain, Post Nasal Drip, Sinus Pain, Sinus Pressure, Bleeding Gums, Change in Voice, Dental Pain, Dry Mouth, Dysphagia, Halitosis, Hoarsness, Lip Swelling, Mouth Lesions, Mouth Pain, Odynophagia, Sore Throat, Throat Swelling, Tongue Swelling, Facial Pain, Neck Pain, Neck Mass, Other - Cardiovascular Cardiovascular: absent: As Per HPI, Acrocyanosis, Chest Pain, Chest Pain at Rest , Chest Pain with Activity, Claudication, Diaphoresis, Dyspnea, Dyspnea on Exertion, Edema, Irregular Heart Rhythm, Pain Radiating to Arm/Neck/Jaw, Leg Edema, Leg Ulcers, Lightheadedness, Orthopnea, Palpitations, Paroxysmal Nocturnal Dyspnea, Pedal Edema, Radiating Pain, Rapid Heart Rate, Slow Heart Rate, Syncope, Other - Respiratory Respiratory: Cough, Dyspnea - Gastrointestinal Gastrointestinal: absent: As Per HPI, Abdominal Pain, Belching, Bloating, Change in Bowel Habits, Change in Stool Character, Coffee Ground Emesis, Constipation, Cramping, Diarrhea, Dyspepsia, Dysphagia, Early Satiety, Excessive Flatus, Fecal Incontinence, Heartburn, Hematemesis, Hematochezia, Loose Stools, Melena, Nausea, Odynophagia, Temesmus, Vomiting, Other - Genitourinary Genitourinary: As Per HPI - Musculoskeletal Musculoskeletal: Muscle Weakness, Myalgias - Integumentary Integumentary: absent: As Per HPI, Acne, Alopecia, Bleeding Lesions, Change in Hair, Change in Nails, Change in Pigmentation, Changing Lesions, Dry Skin, Erythema, Furuncle, Hirsutism, Lesions, New Lesions, Non-Healing Lesions, Photosensitivity, Pruritus, Rash, Skin Pain, Skin Ulcer, Sores, Striae, Swelling , Unusual Bruising, Wounds, Jaundice, Other - Neurological Neurological: absent: As Per HPI, Abnormal Gait, Abnormal Hearing, Abnormal Movements, Abnormal Speech, Behavioral Changes, Burning Sensations, Confusion, Convulsions, Disequilibrium, Dizziness, Numbness, Focal Weakness, Frequent Falls , Headaches, Lack of Coordination, Loss of Vision, Memory Loss, Paresthesias, Radicular Pain, Restless Legs, Sensory Deficit, Syncope, Tingling, Tremor, Vertigo, Weakness, Other Visual Disturbances, Other Past Patient History - Infectious Disease Hx of Infectious Diseases: None - Past Medical History & Family History Past Medical History?: Yes Past Family History: Reviewed and not pertinent - Past Social History Smoking Status: Heavy Smoker > 10 Cigarettes Daily Chewing Tobacco Use: No Cigar Use: No Alcohol: None Drugs: Denies - CARDIAC Hx Congestive Heart Failure: Yes Hx Hypertension: Yes - PULMONARY Hx Chronic Obstructive Pulmonary Disease (COPD): Yes - NEUROLOGICAL Hx Neurological Disorder: Yes HX Cerebrovascular Accident: Yes - HEENT Hx HEENT Problems: No - RENAL Hx Chronic Kidney Disease: Yes - ENDOCRINE/METABOLIC Hx Endocrine Disorders: No - HEMATOLOGICAL/ONCOLOGICAL Hx Anemia: Yes - INTEGUMENTARY Hx Dermatological Problems: No - MUSCULOSKELETAL/RHEUMATOLOGICAL Hx Falls: No - GASTROINTESTINAL Hx Gastrointestinal Disorders: No - GENITOURINARY/GYNECOLOGICAL Hx Genitourinary Disorders: No - PSYCHIATRIC Hx Substance Use: No - SURGICAL HISTORY Hx Surgeries: Yes Hx Arteriovenous Shunt: Yes Hx Vascular Access Device: Yes Other/Comment: nephrectomy hx at age 18 - ANESTHESIA Hx Anesthesia: Yes Hx Anesthesia Reactions: No Hx Malignant Hyperthermia: No Meds Allergies/Adverse Reactions: Allergies Allergy/AdvReac Type Severity Reaction Status Date / Time No Known Allergies Allergy Verified 10/04/17 08:27 - Medications Medications: Current Medications Calcium Gluconate 4.65 meq/ (Dextrose) 110 mls @ 1 mls/hr IV ONCE STA Stop: 10/09/17 01:41 Last Admin: 10/04/17 12:30 Dose: 1 mls/hr Physical Exam - Constitutional Appears: No Acute Distress, Chronically Ill - Head Exam Head Exam: ATRAUMATIC, NORMAL INSPECTION - Eye Exam Eye Exam: EOMI, Normal appearance - Neck Exam Neck exam: Positive for: Normal Inspection. Negative for: Tenderness - Respiratory Exam Respiratory Exam: Clear to Auscultation Bilateral, NORMAL BREATHING PATTERN - Cardiovascular Exam Cardiovascular Exam: REGULAR RHYTHM, +S1 - GI/Abdominal Exam GI & Abdominal Exam: Soft. absent: Tenderness - Extremities Exam Extremities exam: Positive for: normal inspection. Negative for: tenderness - Neurological Exam Neurological exam: Alert, CN II-XII Intact - Skin Skin Exam: Dry, Warm Results - Vital Signs Recent Vital Signs: Last Vital Signs Temp 98.1 F 10/04/17 12:43 Pulse 65 10/04/17 12:29 Resp 22 10/04/17 12:29 BP 164/92 H 10/04/17 12:29 Pulse Ox 100 10/04/17 12:29 - Labs Result Diagrams: 10/04/17 10:12 10/04/17 10:12 Labs: Laboratory Results - last 24 hr 10/04/17 10/04/17 10/04/17 10:12 10:12 10:12 WBC 9.3 D RBC 3.11 L Hgb 9.8 L Hct 29.2 L MCV 94.0 MCH 31.6 H MCHC 33.7 RDW 17.4 H Plt Count 329 MPV 7.7 Neut % (Auto) 76.7 H Lymph % (Auto) 11.9 L [place] % (Auto) 8.8 Eos % (Auto) 1.5 Baso % (Auto) 1.1 Neut # 7.1 H Lymph # 1.1 [place] # 0.8 Eos # 0.1 Baso # 0.1 PT 11.9 INR 1.1 APTT 36 H Sodium 136 Potassium 6.7 H* D Chloride 94 L Carbon Dioxide 25 Anion Gap 23 H BUN 70 H Creatinine 15.1 H* Est GFR ( Amer) 4 Est GFR (Non-Af Amer) 3 Random Glucose 85 Calcium 9.3 Total Bilirubin 1.1 AST 18 ALT 9 L D Alkaline Phosphatase 60 Total Protein 8.6 H Albumin 4.6 Globulin 4.1 H Albumin/Globulin Ratio 1.1 Assessment & Plan (1) Bleeding due to dialysis catheter placement Status: Acute (2) Uncontrolled hypertension Status: Acute (3) Hyperkalemia Status: Acute (4) Bleeding from dialysis shunt Status: Acute (5) ESRD (end stage renal disease) Status: Acute - Assessment and Plan (Free Text) Plan: Dialysis now follow up K Resume BP meds Surgical follow up
--- NOTE | 2017-10-04 15:41 | CP.PCM.HP ---
<Owen Coronado - Last Filed: 10/04/17 16:07> History of Present Illness - History of Present Illness History of Present Illness: CC: "I'm bleeding from my dialysis catheter" Mr Mendoza is a 57 year old male with a past medial history of ESRD on HD and HTN who presented to the ER because he was bleeding from his dialysis catheter since this morning. He initially was admitted on 10/01/17 because the patient had worsening ulcerations of the skin over his left AV fistula and stated he needs another access for dialysis. He had a RIJ permacath insertion on 10/01/17 here at [facility] and a revision and replacement of permacath on 10/03/17 due to the first permacath continuously bleeding. Today the patient again noted bleeding from the permacath site and decided to come to the ER. Admits to some tenderness at permacath insertion site over R chest wall. Denies other complaints. Vascular surgeon - Dr. Guerra PMHx: Dialysis for the past 6 years (MWF), HTN PSHx: Right kidney removed 39 years ago; Left AV fistula 6 years ago Allergies: NKDA Family hx: mother () - cancer, father () Social: pack and 1/2 per day for about 30+ years; denies alcohol or illicit drug use (quit all drugs ~16 years ago. "I used everything. Never injected. Smoked and snort.") Present on Admission - Present on Admission Any Indicators Present on Admission: No Review of Systems - Review of Systems All systems: reviewed and no additional remarkable complaints except - Constitutional Constitutional: absent: Chills, Fever - EENT Eyes: absent: Change in Vision - Cardiovascular Cardiovascular: absent: Chest Pain - Respiratory Respiratory: absent: Cough, Dyspnea - Gastrointestinal Gastrointestinal: absent: Abdominal Pain, Diarrhea - Genitourinary Additional comments: ESRD on HD Past Patient History - Infectious Disease Hx of Infectious Diseases: None - Past Medical History & Family History Past Medical History?: Yes Past Family History: Reviewed and not pertinent - Past Social History Smoking Status: Heavy Smoker > 10 Cigarettes Daily Chewing Tobacco Use: No Cigar Use: No Alcohol: None Drugs: Denies - CARDIAC Hx Congestive Heart Failure: Yes Hx Hypertension: Yes - PULMONARY Hx Chronic Obstructive Pulmonary Disease (COPD): Yes - NEUROLOGICAL Hx Neurological Disorder: Yes HX Cerebrovascular Accident: Yes - HEENT Hx HEENT Problems: No - RENAL Hx Chronic Kidney Disease: Yes - ENDOCRINE/METABOLIC Hx Endocrine Disorders: No - HEMATOLOGICAL/ONCOLOGICAL Hx Anemia: Yes - INTEGUMENTARY Hx Dermatological Problems: No - MUSCULOSKELETAL/RHEUMATOLOGICAL Hx Falls: No - GASTROINTESTINAL Hx Gastrointestinal Disorders: No - GENITOURINARY/GYNECOLOGICAL Hx Genitourinary Disorders: No - PSYCHIATRIC Hx Substance Use: No - SURGICAL HISTORY Hx Surgeries: Yes Hx Arteriovenous Shunt: Yes Hx Vascular Access Device: Yes Other/Comment: nephrectomy hx at age 18 - ANESTHESIA Hx Anesthesia: Yes Hx Anesthesia Reactions: No Hx Malignant Hyperthermia: No Meds Allergies/Adverse Reactions: Allergies Allergy/AdvReac Type Severity Reaction Status Date / Time No Known Allergies Allergy Verified 10/04/17 08:27 Physical Exam - Additional Findings Additional findings: - Constitutional Appears: Non-toxic, No Acute Distress - Head Exam Head Exam: ATRAUMATIC, NORMOCEPHALIC - Eye Exam Eye Exam: EOMI, Normal appearance, PERRL - ENT Exam ENT Exam: Mucous Membranes Moist - Respiratory Exam Respiratory Exam: Wheezes (denied breathing treatment), NORMAL BREATHING PATTERN. absent: Accessory Muscle Use, Rales, Rhonchi, Respiratory Distress - Cardiovascular Exam Cardiovascular Exam: REGULAR RHYTHM, +S1 - GI/Abdominal Exam GI & Abdominal Exam: Soft. absent: Distended, Firm, Guarding, Hernia, Rigid, Tenderness - Extremities Exam Extremities exam: Positive for: normal capillary refill, normal inspection, pedal pulses present. Negative for: calf tenderness, pedal edema Additional comments: palpable thrill over left upper arm AV fistula - Neurological Exam Neurological exam: Alert, CN II-XII Intact, Normal Gait, Oriented x3 - Psychiatric Exam Psychiatric exam: Normal Affect, Normal Mood - Skin Skin Exam: Dry, Warm Additional comments: Ulcerations over left av fistula Results - Vital Signs Recent Vital Signs: Last Vital Signs Temp 97.5 F L 10/04/17 14:44 Pulse 63 10/04/17 14:44 Resp 20 10/04/17 14:44 BP 180/92 H 10/04/17 14:50 Pulse Ox 99 10/04/17 14:44 - Labs Result Diagrams: 10/04/17 10:12 10/04/17 10:12 Labs: Laboratory Results - last 24 hr 10/04/17 10/04/17 10/04/17 10:12 10:12 10:12 WBC 9.3 D RBC 3.11 L Hgb 9.8 L Hct 29.2 L MCV 94.0 MCH 31.6 H MCHC 33.7 RDW 17.4 H Plt Count 329 MPV 7.7 Neut % (Auto) 76.7 H Lymph % (Auto) 11.9 L [place] % (Auto) 8.8 Eos % (Auto) 1.5 Baso % (Auto) 1.1 Neut # 7.1 H Lymph # 1.1 [place] # 0.8 Eos # 0.1 Baso # 0.1 PT 11.9 INR 1.1 APTT 36 H Sodium 136 Potassium 6.7 H* D Chloride 94 L Carbon Dioxide 25 Anion Gap 23 H BUN 70 H Creatinine 15.1 H* Est GFR ( Amer) 4 Est GFR (Non-Af Amer) 3 Random Glucose 85 Calcium 9.3 Total Bilirubin 1.1 AST 18 ALT 9 L D Alkaline Phosphatase 60 Total Protein 8.6 H Albumin 4.6 Globulin 4.1 H Albumin/Globulin Ratio 1.1 Assessment & Plan - Assessment and Plan (Free Text) Assessment: ESRD on HD ([facility]) Gen. Surg Consult, Dr. Guerra * Pressure dressing applied as per Dr. Guerra's instructions * Bleeding at exit site treated by compression Nephro consult, Dr. Neri * Missed dialysis as outpatient - HD being done now Calcium Gluconate given in ER for elevated potassium HTN continue home medications * Amlodipine 10mg PO daily * Carvedilol 25mg PO BID * Clonidine 0.3mg PO BID * Crestor 5mg PO HS Prophylactic Care continue home medications * Albuterol HFA 2 puff IH q4 PRN * Phoslo 2001mg PO TIDCC * Cinacalcet 30mg PO daily * Multimineral/Multivitamin 1 tab PO daily Protonix 40mg PO daily Renal Diet Case discussed with Dr. Corona <Joaquín Corona H - Last Filed: 10/04/17 18:55> Results - Vital Signs Recent Vital Signs: Last Vital Signs Temp 97.4 F L 10/04/17 17:33 Pulse 67 10/04/17 18:18 Resp 20 10/04/17 17:33 BP 181/95 H 10/04/17 17:33 Pulse Ox 96 10/04/17 17:33 - Labs Result Diagrams: 10/04/17 10:12 10/04/17 10:12 Labs: Laboratory Results - last 24 hr 10/04/17 10/04/17 10/04/17 10:12 10:12 10:12 WBC 9.3 D RBC 3.11 L Hgb 9.8 L Hct 29.2 L MCV 94.0 MCH 31.6 H MCHC 33.7 RDW 17.4 H Plt Count 329 MPV 7.7 Neut % (Auto) 76.7 H Lymph % (Auto) 11.9 L [place] % (Auto) 8.8 Eos % (Auto) 1.5 Baso % (Auto) 1.1 Neut # 7.1 H Lymph # 1.1 [place] # 0.8 Eos # 0.1 Baso # 0.1 PT 11.9 INR 1.1 APTT 36 H Sodium 136 Potassium 6.7 H* D Chloride 94 L Carbon Dioxide 25 Anion Gap 23 H BUN 70 H Creatinine 15.1 H* Est GFR ( Amer) 4 Est GFR (Non-Af Amer) 3 Random Glucose 85 Calcium 9.3 Total Bilirubin 1.1 AST 18 ALT 9 L D Alkaline Phosphatase 60 Total Protein 8.6 H Albumin 4.6 Globulin 4.1 H Albumin/Globulin Ratio 1.1 Attending/Attestation - Attestation I have personally seen and examined this patient.: Yes I have fully participated in the care of the patient.: Yes I have reviewed all pertinent clinical information: Yes Notes (Text): 10/04/17 18:55 Medical attending: Patient was seen and examined by me, agrees the above note by biomedical manager. Yesterday he really wanted to go home. And so we let him go home. Unfourtunately his outpatient HD center was not open since it was October 04 and the patient felt that he really needed HD. The patient had a high K and the BUN and creatine were also elevated as well. In the ER he recived calcium gluconate to hold him over until he could get the HD thank you Joaquín Corona
[2017-10-04] MEDS ORDERED: Albuterol HFA 90 mcg/actuation (8 g) IH PRN ×2 (16:04→18:45)
[2017-10-04 17:34] VITALS: TEMP 97.4
[2017-10-04 17:57] VITALS: BP 160/88
[2017-10-04 19:02] VITALS: PULSE 63; RESP 18
--- NOTE | 2017-10-04 19:40 | CP.PCM.DIS ---
Provider - Provider Date of Admission: 10/04/17 11:42 Attending physician: Joaquín Corona DO Consults: Vascular surgeon - Dr. Guerra Nephrology- Dr. Neri Time Spent in preparation of Discharge (in minutes): 35 Diagnosis - Discharge Diagnosis (1) ESRD (end stage renal disease) on dialysis Status: Chronic (2) HTN (hypertension) Status: Chronic Priority: High (3) Prophylactic measure Status: Acute Priority: Medium Hospital Course - Lab Results Lab Results: Most Recent Lab Values WBC 9.3 K/uL (4.8-10.8) D 10/04/17 10:12 RBC 3.11 Mil/uL (4.40-5.90) L 10/04/17 10:12 Hgb 9.8 g/dL (12.0-18.0) L 10/04/17 10:12 Hct 29.2 % (35.0-51.0) L 10/04/17 10:12 MCV 94.0 fL (80.0-94.0) 10/04/17 10:12 MCH 31.6 pg (27.0-31.0) H 10/04/17 10:12 MCHC 33.7 g/dL (33.0-37.0) 10/04/17 10:12 RDW 17.4 % (11.5-14.5) H 10/04/17 10:12 Plt Count 329 K/uL (130-400) 10/04/17 10:12 MPV 7.7 fL (7.2-11.7) 10/04/17 10:12 Neut % (Auto) 76.7 % (50.0-75.0) H 10/04/17 10:12 Lymph % (Auto) 11.9 % (20.0-40.0) L 10/04/17 10:12 [place] % (Auto) 8.8 % (0.0-10.0) 10/04/17 10:12 Eos % (Auto) 1.5 % (0.0-4.0) 10/04/17 10:12 Baso % (Auto) 1.1 % (0.0-2.0) 10/04/17 10:12 Neut # 7.1 K/uL (1.8-7.0) H 10/04/17 10:12 Lymph # 1.1 K/uL (1.0-4.3) 10/04/17 10:12 [place] # 0.8 K/uL (0.0-0.8) 10/04/17 10:12 Eos # 0.1 K/uL (0.0-0.7) 10/04/17 10:12 Baso # 0.1 K/uL (0.0-0.2) 10/04/17 10:12 PT 11.9 SECONDS (9.7-12.2) 10/04/17 10:12 INR 1.1 10/04/17 10:12 APTT 36 SECONDS (21-34) H 10/04/17 10:12 Sodium 136 mmol/L (132-148) 10/04/17 10:12 Potassium 6.7 mmol/L (3.6-5.2) H* D 10/04/17 10:12 Chloride 94 mmol/L (98-107) L 10/04/17 10:12 Carbon Dioxide 25 mmol/L (22-30) 10/04/17 10:12 Anion Gap 23 (10-20) H 10/04/17 10:12 BUN 70 mg/dL (9-20) H 10/04/17 10:12 Creatinine 15.1 mg/dL (0.8-1.5) H* 10/04/17 10:12 Est GFR ( Amer) 4 10/04/17 10:12 Est GFR (Non-Af Amer) 3 10/04/17 10:12 Random Glucose 85 mg/dL (75-110) 10/04/17 10:12 Calcium 9.3 mg/dl (8.6-10.4) 10/04/17 10:12 Total Bilirubin 1.1 mg/dL (0.2-1.3) 10/04/17 10:12 AST 18 U/L (17-59) 10/04/17 10:12 ALT 9 U/L (21-72) L D 10/04/17 10:12 Alkaline Phosphatase 60 U/L (38-126) 10/04/17 10:12 Total Protein 8.6 g/dL (6.3-8.3) H 10/04/17 10:12 Albumin 4.6 g/dL (3.5-5.0) 10/04/17 10:12 Globulin 4.1 gm/dL (2.2-3.9) H 10/04/17 10:12 Albumin/Globulin Ratio 1.1 (1.0-2.1) 10/04/17 10:12 - Hospital Course Hospital Course: Initial Note: "Mr Mendoza is a 57 year old male with a past medial history of ESRD on HD and HTN who presented to the ER because he was bleeding from his dialysis catheter since this morning. He initially was admitted on 10/01/17 because the patient had worsening ulcerations of the skin over his left AV fistula and stated he needs another access for dialysis. He had a RIJ permacath insertion on 10/01/17 here at [facility] and a revision and replacement of permacath on 10/03/17 due to the first permacath continuously bleeding. Today the patient again noted bleeding from the permacath site and decided to come to the ER. Admits to some tenderness at permacath insertion site over R chest wall. Denies other complaints." Hospital Course: Patient admitted due to bleeding around the site of the permacath as well as for missing a session of hemodialysis. Per Dr. Guerra's instructions, bleeding at exit site treated by compression. Dr. Neri was consulted for hemodialysis orders. Patient underwent HD and then wanted to sign out against medical advice. This decision was made with informed refusal. The risks of leaving were explained to the patient and include, but are not limited to, worsening of known or currently unknown conditions, permanent disability and from undiagnosed or untreated conditions. The patient has the capacity to make this informed decision and understands my explanation of the current medical problem and risks of leaving. The patient voluntarily accepts these risks and signed an AMA form documenting our conversation. The patient was given the opportunity to ask questions and reconsider. The patient was encouraged to return to the emergency department at any time for further care. This is a summary of the hospital course. For more information, refer to the medical records. Discharge Exam - Additional Findings Additional findings: - Constitutional Appears: Non-toxic, No Acute Distress - Head Exam Head Exam: ATRAUMATIC, NORMOCEPHALIC - Eye Exam Eye Exam: EOMI, Normal appearance, PERRL - ENT Exam ENT Exam: Mucous Membranes Moist - Respiratory Exam Respiratory Exam: Wheezes (denied breathing treatment), NORMAL BREATHING PATTERN. absent: Accessory Muscle Use, Rales, Rhonchi, Respiratory Distress - Cardiovascular Exam Cardiovascular Exam: REGULAR RHYTHM, +S1 - GI/Abdominal Exam GI & Abdominal Exam: Soft. absent: Distended, Firm, Guarding, Hernia, Rigid, Tenderness - Extremities Exam Extremities exam: Positive for: normal capillary refill, normal inspection, pedal pulses present. Negative for: calf tenderness, pedal edema Additional comments: palpable thrill over left upper arm AV fistula - Neurological Exam Neurological exam: Alert, CN II-XII Intact, Normal Gait, Oriented x3 - Psychiatric Exam Psychiatric exam: Normal Affect, Normal Mood - Skin Skin Exam: Dry, Warm Additional comments: Ulcerations over left av fistula Discharge Plan - Follow Up Plan Condition: UNKNOWN Disposition: AGAINST MEDICAL ADVICE
[2017-10-05] MEDS ORDERED: Multiple Vitamins Tab PO SCH (10:00)
[2017-10-05] MEDS ORDERED: Pantoprazole 40 mg EC Tab PO SCH (10:00)
--- NOTE | 2017-10-05 13:38 | CARD ---
APPROVED REPORT EKG Measurement Heart [id number] <Conclusion> Sinus rhythm with 1st degree AV block Septal infarct, age undetermined ST & T wave abnormality, consider lateral ischemia Abnormal ECG peak t waves in anterior wall,poss ischemic.
[2017-10-06 12:49] VITALS: O2SAT 100
== END 2017-10-04 19:42 | disposition left against medical advice (07) | DRG 314 ==
LOC: C.ER 08:14 → C.9E 11:42 → C.5S 12:14
PROVIDERS: ADMIT Hospitalist; ATTEND Hospitalist
PROC: 5A1D70Z Performance of Urinary Filtration, Intermittent, Less than 6 Hours Per Day (ICD-10-PCS; principal; 2017-10-04)
DX: T82.838A Hemorrhage due to vascular prosthetic devices, implants and grafts, initial encounter (principal); N18.6 End stage renal disease; I13.2 Hypertensive heart and chronic kidney disease with heart failure and with stage 5 chronic kidney disease, or end stage renal disease; Y84.1 Kidney dialysis as the cause of abnormal reaction of the patient, or of later complication, without mention of misadventure at the time of the procedure; E87.5 Hyperkalemia; I25.10 Atherosclerotic heart disease of native coronary artery without angina pectoris; I50.9 Heart failure, unspecified; D64.9 Anemia, unspecified; J44.9 Chronic obstructive pulmonary disease, unspecified; Z72.0 Tobacco use; Z79.899 Other long term (current) drug therapy; Z86.73 Personal history of transient ischemic attack (TIA), and cerebral infarction without residual deficits; Z99.2 Dependence on renal dialysis

== ENCOUNTER 2017-10-05 08:37 | Emergency (ER) | payer MEDICARE, MEDICAID ==
[2017-10-05 08:38] VITALS: BMI 16.7
[2017-10-05 08:51] VITALS: BP 189/105; PULSE 73; RESP 18; TEMP 99; O2SAT 100
--- NOTE | 2017-10-05 14:32 | C.PDOC ---
History Of Present Illness 57 y/o male came to have his permacath site checked; sts it was bleeding. pt had it put in the last few days, was admitted to hospital and had hd. pt left ama yesterday. pt not found in bed assigned initially, found to be walking around ED fully dressed. I asked pt to return to his assigned bed and to undress so that he might be examined. pt then stated he didn't want to be examined and proceeded to walk out of ed with out signing any paperwork. Time Seen by Provider: 10/05/17 08:54 Chief Complaint (Nursing): Abnormal Skin Integrity Past Medical History Vital Signs: Last Vital Signs Temp 99 F 10/05/17 08:47 Pulse 73 10/05/17 08:47 Resp 18 10/05/17 08:47 BP 189/105 H 10/05/17 08:47 Pulse Ox 100 10/06/17 23:24 - Medical History PMH: Anemia, CAD, CHF, COPD, HTN, End Stage Renal Disease, Chronic Kidney Disease - [facility] Procedures (10/04/17) FLUOROSCOPY OF SUPERIOR VENA CAVA, GUIDANCE (10/01/17) HEMODIALYSIS (10/16/14) INSERTION OF INFUSION DEV INTO SUP VENA CAVA, PERC APPROACH (10/01/17) INSERTION OF VAD INTO CHEST SUBCU/FASCIA, PERC APPROACH (10/01/17) REVISION OF VAD IN TRUNK SUBCU/FASCIA, PERC APPROACH (10/01/17) Family History: States: Unknown Family Hx - Social History Hx Tobacco Use: Yes Hx Alcohol Use: No Hx Substance Use: No - Immunization History Hx Tetanus Toxoid Vaccination: No Hx Influenza Vaccination: Yes Hx Pneumococcal Vaccination: Yes ED Course And Treatment O2 Sat by Pulse Oximetry: 100 Medical Decision Making Medical Decision Making: pt refused exam, walked out of ed, refused to stay to sign any paperwork. Disposition - Disposition Disposition: LEFT W/O BEING SEEN - ER ONLY Disposition Time: 09:40 Condition: UNKNOWN Forms: [facility] (Brazilian) - Clinical Impression Clinical Impression: Bleeding from dialysis shunt, Hypertension
== END 2017-10-05 09:41 | disposition left against medical advice (07) ==
LOC: C.ER 08:37
DX: T82.838A Hemorrhage due to vascular prosthetic devices, implants and grafts, initial encounter (principal); Y84.8 Other medical procedures as the cause of abnormal reaction of the patient, or of later complication, without mention of misadventure at the time of the procedure; I12.0 Hypertensive chronic kidney disease with stage 5 chronic kidney disease or end stage renal disease; N18.6 End stage renal disease; Z99.2 Dependence on renal dialysis

== ENCOUNTER 2018-08-11 11:07 | Observation (INO) | payer MEDICARE, MEDICAID ==
[2018-08-11 11:21] VITALS: BMI 24.9
--- NOTE | 2018-08-11 11:25 | C.PDOC ---
History Of Present Illness 58 y/o male with history of HTN, High cholesterol and On dialysis (MWF) presents to ED with c/o pressure like chest pain for "couple of days". Patient states pain has improved but persistent prompting visit to ED. Patient reports last stress test was 1 year ago and denies sob, abdominal pain, nausea, vomiting,leg swelling or any other complaints at this time. PMD: Dr. Alexey Bernal Time Seen by Provider: 08/11/18 11:25 Chief Complaint (Nursing): Chest Pain History Per: Patient History/Exam Limitations: no limitations Onset/Duration Of Symptoms: Days Current Symptoms Are (Timing): Still Present Past Medical History Reviewed: Historical Data, Nursing Documentation, Vital Signs Vital Signs: Last Vital Signs Temp 98.4 F 08/11/18 11:17 Pulse 78 08/11/18 11:17 Resp 18 08/11/18 11:17 BP 199/108 H 08/11/18 11:17 Pulse Ox 96 08/11/18 11:17 - Medical History PMH: Anemia, CAD, CHF, COPD, HTN, End Stage Renal Disease, Chronic Kidney Disease Surgical History: No Surg Hx - [facility] Procedures (10/04/17) FLUOROSCOPY OF SUPERIOR VENA CAVA, GUIDANCE (10/01/17) HEMODIALYSIS (10/16/14) INSERTION OF INFUSION DEV INTO SUP VENA CAVA, PERC APPROACH (10/01/17) INSERTION OF VAD INTO CHEST SUBCU/FASCIA, PERC APPROACH (10/01/17) REVISION OF VAD IN TRUNK SUBCU/FASCIA, PERC APPROACH (10/01/17) Family History: States: No Known Family Hx - Social History Hx Tobacco Use: Yes Hx Alcohol Use: No Hx Substance Use: No - Immunization History Hx Tetanus Toxoid Vaccination: No Hx Influenza Vaccination: Yes (2017) Hx Pneumococcal Vaccination: Yes Review Of Systems Constitutional: Negative for: Fever, Chills Cardiovascular: Positive for: Chest Pain. Negative for: Palpitations Respiratory: Negative for: Cough, Shortness of Breath Gastrointestinal: Negative for: Nausea, Vomiting, Abdominal Pain, Diarrhea Skin: Negative for: Rash Neurological: Negative for: Weakness, Numbness Physical Exam - Physical Exam Appears: Non-toxic, No Acute Distress Skin: Warm, Dry, No Rash Head: Atraumatic, Normacephalic Eye(s): bilateral: Normal Inspection Oral Mucosa: Moist Neck: Normal ROM, Supple Cardiovascular: Rhythm Regular Respiratory: No Rhonchi, No Wheezing, Other (bibasilar crackles) Gastrointestinal/Abdominal: Soft, No Tenderness, No Guarding, No Rebound Extremity: Normal ROM, No Pedal Edema, Capillary Refill (<2 seconds) Neurological/Psych: Oriented x3, Normal Speech, Normal Cognition ED Course And Treatment - Laboratory Results Result Diagrams: 08/11/18 12:08 08/11/18 12:08 ECG: Interpreted By Me, Viewed By Me ECG Rhythm: Sinus Rhythm Interpretation Of ECG: Inverted T waves on V5-V6, AVL. No stemi Rate From EC (BPM) O2 Sat by Pulse Oximetry: 96 (RA) Pulse Ox Interpretation: Normal Medical Decision Making Medical Decision Makin yr old M w/ hx of HTN, HLD, CAD, HD MWF p/w CP. No radiation to back. No pleuritic cp, will heart score given RF. Pt also notes congestion but no stiff neck or meningeal signs. No sinus pressure. EK Trop: pend Story: 0 Age: 1 RF: 2 Plan: ECG, CXR, Blood work ordered Progress: 1319 XR unremarkable trop .05, within range, Dr. Covington not at this hospital Heart score 4, Paged Dr. Oswald for serial trops, likely echo ASA given [address] Strauss pt in NAD consults placed for medicine: Renal and cards per IM request Disposition - Disposition Disposition Time: 14:05 Condition: GOOD - Clinical Impression Clinical Impression: Chest pain - Scribe Statement The provider has reviewed the documentation as recorded by the Anurag Chapman All medical record entries made by the Anurag were at my direction and personally dictated by me. I have reviewed the chart and agree that the record accurately reflects my personal performance of the history, physical exam, medical decision making, and the department course for this patient. I have also personally directed, reviewed, and agree with the discharge instructions and disposition.
[2018-08-11 12:15] LABS: BASO # 0.1 K/uL (0.0-0.2); BASO % 1.3 % (0.0-2.0); EOS # 0.2 K/uL (0.0-0.7); EOS % 2.4 % (0.0-4.0); HEMOGLOBIN 10.5 g/dL (12.0-18.0); LYMPH # 1.1 K/uL (1.0-4.3); LYMPH % 14.2 % (20.0-40.0); MEAN CELL VOLUME 95.7 fL (80.0-94.0); MEAN CORPUSCULAR HEMOGLOBIN 32.2 pg (27.0-31.0); MEAN CORPUSCULAR HGB CONC 33.6 g/dL (33.0-37.0); MEAN PLATELET VOLUME 7.7 fL (7.2-11.7); MONO % 13.1 % (0.0-10.0); NEUT # 5.3 K/uL (1.8-7.0); NRBC % 0.3 % (0.0-2.0); RBC 3.25 Mil/uL (4.40-5.90); RED CELL DISTRIBUTION WIDTH 17.3 % (11.5-14.5); WHITE BLOOD COUNT 7.6 K/uL (4.8-10.8)
[2018-08-11 12:43] LABS: TROPONIN I 0.058 ng/mL (0.00-0.120)
[2018-08-11 12:46] LABS: ALB/GLOB RATIO 1.1 (1.0-2.1); ALBUMIN 4.5 g/dL (3.5-5.0); CALCIUM 8.4 mg/dl (8.6-10.4)
--- NOTE | 2018-08-11 13:46 | RAD ---
Date of service: 08/11/2018 HISTORY: cp COMPARISON: Comparison made made with prior study 10/04/2017.. Comparison also made with CTA chest dated 10/17/2014 TECHNIQUE: Chest PA and lateral FINDINGS: LUNGS: Lungs appear slightly hyperinflated; rule out mild COPD. PLEURA: No significant pleural effusion identified. No pneumothorax apparent. CARDIOVASCULAR: No aortic atherosclerotic calcification present. Normal cardiac size. No pulmonary vascular congestion. OSSEOUS STRUCTURES: No significant abnormalities. VISUALIZED UPPER ABDOMEN: Normal. OTHER FINDINGS: None. IMPRESSION: No acute cardiopulmonary disease. Mild hyperinflation; rule out underlying COPD.
[2018-08-11] MEDS ORDERED: Labetalol 25mg/5ml Syringe IVP STA (15:20)
[2018-08-11] MEDS ORDERED: Labetalol 5mg/ml (4ml) ONE (15:25)
--- NOTE | 2018-08-11 16:47 | CP.PCM.PN ---
Subjective - Date & Time of Evaluation Date of Evaluation: 08/11/18 Time of Evaluation: 16:47 - Subjective Subjective: [facility] #[id number] Objective - Vital Signs/Intake and Output Vital Signs (last 24 hours): Temp Pulse Resp BP Pulse Ox 98.6 F 78 18 165/97 H 96 08/11/18 15:39 08/11/18 15:39 08/11/18 15:39 08/11/18 15:39 08/11/18 15:46 - Medications Medications: Current Medications Amlodipine Besylate (Norvasc) 10 mg PO DAILY [facility] Carvedilol (Coreg) 25 mg PO BID [facility] Cinacalcet (Sensipar) 30 mg PO DAILY [facility] Clonidine HCl (Catapres) 0.3 mg PO BID [facility] Minoxidil (Loniten) 10 mg PO DAILY [facility] [id number] Ethyl Esters (Lovaza) 1 gm PO BID [facility] Pantoprazole Sodium (Protonix Ec Tab) 40 mg PO DAILY [facility] Rosuvastatin Calcium (Crestor) 5 mg PO HS [facility] - Labs Labs: 08/11/18 12:08 08/11/18 12:08
[2018-08-11] MEDS: Omega-3-Acid Ethyl Esters 1 GM Cap PO SCH (18:00)
--- NOTE | 2018-08-12 08:56 | HP ---
CHIEF COMPLAINT: Left-sided chest pain persistent for the past five days. HISTORY OF PRESENT ILLNESS: Mr. 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 Bernal as primary care physician and Dr. Neri as kitchen operator, getting hemodialysis at [place]. Came into the emergency room as the patient has been having persistent pressure-like left-sided chest pain, 07/13 associated with shortness of breath. The patient claimed the pain was worse when he moved his head to the right and felt better when he moved his head to the left. His pain was worse on Wednesday. He thought it was from fluid overload and he thought that his symptoms would get better after undergoing dialysis. He did feel better yesterday after the treatment. He slept better last night, but still the patient was having chest pain this morning which made him come to the emergency room. When I examined he still feels that he has chest pain in the retrosternal area this morning, but felt better in the emergency room. When I examined, he denied any chest pain, denied any headache or dizziness. Denied any shortness of breath or wheezing. Denied any nausea, vomiting, abdominal pain, diarrhea, or constipation. Denied any urinary complaints. Denied any joint swelling. Denied any neurologic symptoms. PAST MEDICAL HISTORY: As described hypertension; ESRD, on hemodialysis for the past 7 years; history of right kidney tumor, status post right nephrectomy; history of CVA with minimal left-sided weakness. PAST SURGICAL HISTORY: Right nephrectomy in 1977 and left AV fistula about 7 years ago. FAMILY HISTORY: Father at age 49 secondary to coronary artery disease. Mother from cancer in her 70s. Brother at age 45, had history of diabetes, on hemodialysis. PERSONAL HISTORY: He is single, living alone, unemployed. SOCIAL HISTORY: Smokes 1 pack per day for 50 years. Denies any alcohol or drug abuse. ALLERGIES: NO KNOWN DRUG ALLERGIES. MEDICATIONS AT HOME: Include clonidine 0.3 mg daily, amlodipine 10 mg daily, Prilosec 20 mg daily, Lovaza 1 g b.i.d., minoxidil 10 mg daily, Sensipar 30 mg daily, Coreg 25 mg p.o. b.i.d., Lipitor 10 mg p.o. at bedtime. REVIEW OF SYSTEMS: As described in history of present illness. All other systems reviewed and were found to be negative. PHYSICAL EXAMINATION: GENERAL: A middle-aged male lying in bed in no acute distress. VITAL SIGNS: Blood pressure 165/97, pulse 78, respirations 18, temperature 98.6 degrees Fahrenheit, O2 sat 100% on room air. HEENT: Pupils equal, round reacting to light and accommodation. Extraocular muscles intact. No icterus. No pallor. No oral thrush. No pharyngeal congestion. NECK: Supple. No JVD. LUNGS: Bilateral vesicular breath sounds. No wheezing. No rhonchi. CVS: S1, S2 present. Regular. ABDOMEN: Soft, nontender. Bowel sounds present. No guarding. No rigidity. No rebound tenderness noted. SALESPERSON SEWING MACHINES: Alert, awake, oriented x3. No focal deficits noted. EXTREMITIES: No edema. Palpable peripheral pulses. Right upper extremity with AV access in place with good bruit. LABORATORY DATA: Labs done from the emergency room; WBC 7.6, hemoglobin 10.5, hematocrit 31.1, platelets 354. Sodium 142, potassium 3.7, chloride 96, bicarbonate 32, BUN 32, creatinine 8.6, glucose 106, calcium 8.4, magnesium 2.1, total bilirubin 1.3, AST 23, ALT 23, alkaline phosphatase 69. Troponin 0.0580. Total protein 8.5, albumin 4.5. DIAGNOSTIC DATA: Chest x-ray negative for any infiltrate. EKG consistent with normal sinus rhythm with T inversion in V1, aVL, and poor R-wave progression. T inversion in V5 and V6. Review of old EKG shows new T inversions in V5 and V6. No T inversion seen in V5 and V6 earlier this year. No recent echocardiograms done. Last echocardiogram was done in 2014 which showed EF of 77%, hypertensive heart disease. ASSESSMENT AND PLAN: A middle-aged male with history of hypertension; hyperlipidemia; end-stage renal disease, on hemodialysis; history of cerebrovascular accident with minimal left-sided weakness; status post right nephrectomy for right kidney tumor. Admitted for chest pain for the past five days, left sided, associated with shortness of breath and pain was 10/10 which got better this morning after coming into the emergency room. In the emergency department, the patient was found to be having normal troponin, but his EKG showed new T inversions in V5 and V6 and the patient is being admitted for further management. 1. Chest pain in a patient with multiple risk factors, rule out acute coronary syndrome. 2. Hypertension, uncontrolled. 3. End-stage renal disease, on hemodialysis, status post hemodialysis yesterday. 4. History of hyperlipidemia. 5. History of cerebrovascular accident without significant residual weakness. PLAN: The patient is being admitted to telemetry. We will do serial cardiac enzymes, serial EKGs. We will check echocardiogram. As per the patient, he underwent stress test at [facility] last year which was abnormal as per the patient. He was following up with the shift production associate who he could not recall. We will continue with his home medications. We will give aspirin 325 mg daily. We will obtain Cardiology evaluation with Dr. Posada. We will obtain Renal consult with Dr. Neri. He is due for his hemodialysis in a.m. We will repeat labs in the morning. We will add further recommendation as his clinical course progresses. Bradley Giron MD
[2018-08-12] MEDS: Omega-3-Acid Ethyl Esters 1 GM Cap PO SCH ×3 (09:33→18:42)
[2018-08-12] MEDS: Pantoprazole 40 mg EC Tab PO SCH (09:33)
--- NOTE | 2018-08-12 11:03 | CP.PCM.PN ---
Subjective - Date & Time of Evaluation Date of Evaluation: 08/12/18 Time of Evaluation: 11:03 - Subjective Subjective: Progress note dictated #[id number] Objective - Vital Signs/Intake and Output Vital Signs (last 24 hours): Temp Pulse Resp BP Pulse Ox 98.1 F 77 20 174/93 H 100 08/12/18 09:13 08/12/18 09:13 08/12/18 09:13 08/12/18 09:33 08/12/18 10:53 - Medications Medications: Current Medications Amlodipine Besylate (Norvasc) 10 mg PO DAILY [facility] Last Admin: 08/12/18 09:33 Dose: 10 mg Carvedilol (Coreg) 25 mg PO BID [facility] Last Admin: 08/12/18 09:33 Dose: 25 mg Cinacalcet (Sensipar) 30 mg PO DAILY [facility] Last Admin: 08/12/18 09:34 Dose: 30 mg Clonidine HCl (Catapres) 0.3 mg PO BID [facility] Last Admin: 08/12/18 09:33 Dose: 0.3 mg Heparin Sodium (Porcine) (Heparin) 5,000 units SC Q12 [facility] Last Admin: 08/12/18 09:37 Dose: Not Given Minoxidil (Loniten) 10 mg PO DAILY [facility] Last Admin: 08/12/18 09:33 Dose: 10 mg [id number] Ethyl Esters (Lovaza) 1 gm PO BID [facility] Last Admin: 08/12/18 09:33 Dose: 1 gm Pantoprazole Sodium (Protonix Ec Tab) 40 mg PO DAILY [facility] Last Admin: 08/12/18 09:33 Dose: 40 mg Rosuvastatin Calcium (Crestor) 5 mg PO HS [facility] Last Admin: 08/11/18 21:30 Dose: 5 mg - Labs Labs: 08/11/18 12:08 08/11/18 12:08
[2018-08-12 12:33] LABS: BASO # 0.1 K/uL (0.0-0.2); BASO % 1.4 % (0.0-2.0); EOS # 0.2 K/uL (0.0-0.7); EOS % 2.5 % (0.0-4.0); HEMOGLOBIN 9.8 g/dL (12.0-18.0); LYMPH # 0.9 K/uL (1.0-4.3); LYMPH % 12.9 % (20.0-40.0); MEAN CELL VOLUME 94.6 fL (80.0-94.0); MEAN CORPUSCULAR HEMOGLOBIN 31.7 pg (27.0-31.0); MEAN CORPUSCULAR HGB CONC 33.5 g/dL (33.0-37.0); MEAN PLATELET VOLUME 7.7 fL (7.2-11.7); MONO % 14.3 % (0.0-10.0); NEUT # 4.8 K/uL (1.8-7.0); NEUT % 68.9 % (50.0-75.0); NRBC % 0.2 % (0.0-2.0); RBC 3.1 Mil/uL (4.40-5.90); RED CELL DISTRIBUTION WIDTH 16.5 % (11.5-14.5); WHITE BLOOD COUNT 6.9 K/uL (4.8-10.8)
[2018-08-12 12:52] LABS: ALB/GLOB RATIO 1.1 (1.0-2.1); ALBUMIN 3.7 g/dL (3.5-5.0)
--- NOTE | 2018-08-12 13:42 | CP.PCM.CON ---
History of Present Illness - History of Present Illness History of Present Illness: 58 y/o male with history of HTN, High cholesterol and On dialysis (MWF) presents to ED with c/o pressure like chest pain for "couple of days". Patient states pain has improved but persistent prompting visit to ED. Patient reports last stress test was 1 year ago and denies sob, abdominal pain, nausea, vomiting,leg swelling or any other complaints at this time. More dyspneic PMD: Dr. Alexey Bernal Past Medical History Reviewed: Historical Data, Nursing Documentation, Vital Signs Vital Signs: Last Vital Signs Temp 98.4 F 08/11/18 11:17 Pulse 78 08/11/18 11:17 Resp 18 08/11/18 11:17 BP 199/108 H 08/11/18 11:17 Pulse Ox 96 08/11/18 11:17 - Medical History PMH: Anemia, CAD, CHF, COPD, HTN, End Stage Renal Disease, Chronic Kidney Disease Surgical History: Left AV fistula Review of Systems - Constitutional Constitutional: Fatigue, Weakness - EENT Eyes: absent: As Per HPI, Blind Spots, Blurred Vision, Change in Vision, Decreased Night Vision, Diplopia, Discharge, Dry Eye, Exophthalmos, Floaters, Irritation, Itchy Eyes, Loss of Peripheral Vision, Pain, Photophobia, Requires Corrective Lenses, Sees Flashes, Spots in Vision, Tunnel Vision, Other Visual Disturbances, Loss of Vision, Other Ears: absent: As Per HPI, Decreased Hearing, Ear Discharge, Ear Pain, Tinnitus, Abnormal Hearing, Disequilibrium, Dizziness, Other Nose/Mouth/Throat: absent: As Per HPI, Epistaxis, Nasal Congestion, Nasal Discharge, Nasal Obstruction, Nasal Trauma, Nose Pain, Post Nasal Drip, Sinus Pain, Sinus Pressure, Bleeding Gums, Change in Voice, Dental Pain, Dry Mouth, Dysphagia, Halitosis, Hoarsness, Lip Swelling, Mouth Lesions, Mouth Pain, Odynophagia, Sore Throat, Throat Swelling, Tongue Swelling, Facial Pain, Neck Pain, Neck Mass, Other - Cardiovascular Cardiovascular: Chest Pain, Dyspnea on Exertion - Respiratory Respiratory: Cough, Dyspnea on Exertion - Gastrointestinal Gastrointestinal: Nausea - Genitourinary Genitourinary: As Per HPI - Musculoskeletal Musculoskeletal: Muscle Weakness, Myalgias - Neurological Neurological: Weakness Past Patient History - Infectious Disease Hx of Infectious Diseases: None - Past Medical History & Family History Past Medical History?: Yes Past Family History: Reviewed and not pertinent - Past Social History Smoking Status: Heavy Smoker > 10 Cigarettes Daily Chewing Tobacco Use: No Cigar Use: No Alcohol: Occasional Drugs: Denies Home Situation {Lives}: Alone - CARDIAC Hx Congestive Heart Failure: Yes Hx Hypertension: Yes - PULMONARY Hx Chronic Obstructive Pulmonary Disease (COPD): Yes - NEUROLOGICAL Hx Neurological Disorder: Yes HX Cerebrovascular Accident: Yes - HEENT Hx HEENT Problems: No - RENAL Hx Chronic Kidney Disease: Yes - ENDOCRINE/METABOLIC Hx Endocrine Disorders: No - HEMATOLOGICAL/ONCOLOGICAL Hx Anemia: Yes - INTEGUMENTARY Hx Dermatological Problems: No - MUSCULOSKELETAL/RHEUMATOLOGICAL Hx Musculoskeletal Disorders: No Hx Falls: No - GASTROINTESTINAL Hx Gastrointestinal Disorders: No - GENITOURINARY/GYNECOLOGICAL Hx Genitourinary Disorders: No - PSYCHIATRIC Hx Substance Use: No - SURGICAL HISTORY Hx Surgeries: Yes Hx Arteriovenous Shunt: Yes Hx Vascular Access Device: Yes Other/Comment: nephrectomy hx at age 18 - ANESTHESIA Hx Anesthesia: Yes Hx Anesthesia Reactions: No Hx Malignant Hyperthermia: No Meds Allergies/Adverse Reactions: Allergies Allergy/AdvReac Type Severity Reaction Status Date / Time No Known Allergies Allergy Verified 08/11/18 11:17 - Medications Medications: Current Medications Amlodipine Besylate (Norvasc) 10 mg PO DAILY [facility] Last Admin: 08/12/18 09:33 Dose: 10 mg Carvedilol (Coreg) 25 mg PO BID [facility] Last Admin: 08/12/18 09:33 Dose: 25 mg Cinacalcet (Sensipar) 30 mg PO DAILY [facility] Last Admin: 08/12/18 09:34 Dose: 30 mg Clonidine HCl (Catapres) 0.3 mg PO BID [facility] Last Admin: 08/12/18 09:33 Dose: 0.3 mg Heparin Sodium (Porcine) (Heparin) 5,000 units SC Q12 [facility] Last Admin: 08/12/18 09:37 Dose: Not Given Minoxidil (Loniten) 10 mg PO DAILY [facility] Last Admin: 08/12/18 09:33 Dose: 10 mg [id number]-4-[id number] Ethyl Esters (Lovaza) 1 gm PO BID [facility] Last Admin: 08/12/18 09:33 Dose: 1 gm Pantoprazole Sodium (Protonix Ec Tab) 40 mg PO DAILY [facility] Last Admin: 08/12/18 09:33 Dose: 40 mg Rosuvastatin Calcium (Crestor) 5 mg PO HS [facility] Last Admin: 08/11/18 21:30 Dose: 5 mg Physical Exam - Constitutional Appears: No Acute Distress, Chronically Ill - Head Exam Head Exam: ATRAUMATIC, NORMAL INSPECTION - Eye Exam Eye Exam: EOMI, Normal appearance - Neck Exam Neck exam: Positive for: Normal Inspection. Negative for: Tenderness - Respiratory Exam Respiratory Exam: Rhonchi, Wheezes, NORMAL BREATHING PATTERN - Cardiovascular Exam Cardiovascular Exam: REGULAR RHYTHM, +S1 - GI/Abdominal Exam GI & Abdominal Exam: Soft. absent: Distended - Extremities Exam Extremities exam: Positive for: normal inspection, tenderness - Neurological Exam Neurological exam: Alert, CN II-XII Intact - Skin Skin Exam: Dry, Warm Results - Vital Signs Recent Vital Signs: Last Vital Signs Temp 98.1 F 08/12/18 09:13 Pulse 77 08/12/18 09:13 Resp 20 08/12/18 09:13 BP 174/93 H 08/12/18 09:33 Pulse Ox 100 08/12/18 10:53 - Labs Result Diagrams: 08/12/18 12:16 08/12/18 12:16 Labs: Laboratory Results - last 24 hr 08/12/18 08/12/18 08/12/18 00:17 12:16 12:16 WBC 6.9 RBC 3.10 L Hgb 9.8 L Hct 29.3 L MCV 94.6 H MCH 31.7 H MCHC 33.5 RDW 16.5 H Plt Count 335 MPV 7.7 Neut % (Auto) 68.9 Lymph % (Auto) 12.9 L [place] % (Auto) 14.3 H Eos % (Auto) 2.5 Baso % (Auto) 1.4 Neut # (Auto) 4.8 Lymph # (Auto) 0.9 L [place] # (Auto) 1.0 H Eos # (Auto) 0.2 Baso # (Auto) 0.1 Sodium 140 Potassium 4.0 Chloride 95 L Carbon Dioxide 33 H Anion Gap 16 BUN 42 H Creatinine 10.7 H* D Est GFR ( Amer) 6 Est GFR (Non-Af Amer) 5 Random Glucose 97 Hemoglobin A1c Calcium 8.0 L Phosphorus 2.5 Magnesium 2.2 Total Bilirubin 0.9 AST 17 D ALT 21 Alkaline Phosphatase 65 Troponin I 0.0520 Total Protein 7.2 Albumin 3.7 Globulin 3.5 Albumin/Globulin Ratio 1.1 Triglycerides 136 Cholesterol 141 LDL Cholesterol Direct 74 HDL Cholesterol 25 L TSH 3rd Generation 2.71 08/12/18 08/12/18 12:16 12:16 WBC RBC Hgb Hct MCV MCH MCHC RDW Plt Count MPV Neut % (Auto) Lymph % (Auto) [place] % (Auto) Eos % (Auto) Baso % (Auto) Neut # (Auto) Lymph # (Auto) [place] # (Auto) Eos # (Auto) Baso # (Auto) Sodium Potassium Chloride Carbon Dioxide Anion Gap BUN Creatinine Est GFR ( Amer) Est GFR (Non-Af Amer) Random Glucose Hemoglobin A1c 4.5 Calcium Phosphorus Magnesium Total Bilirubin AST ALT Alkaline Phosphatase Troponin I 0.0500 Total Protein Albumin Globulin Albumin/Globulin Ratio Triglycerides Cholesterol LDL Cholesterol Direct HDL Cholesterol TSH 3rd Generation Assessment & Plan (1) Fluid overload Status: Acute (2) Chronic obstructive pulmonary disease Status: Acute (3) Fluid overload Status: Acute (4) ESRD (end stage renal disease) on dialysis Status: Chronic - Assessment and Plan (Free Text) Plan: Dialysis now and MWF Adequate UF
[2018-08-12 20:32] LABS: CK-MB 0.64 ng/mL (0.0-3.38); TROPONIN I 0.056 ng/mL (0.00-0.120)
--- NOTE | 2018-08-12 22:11 | PN ---
DATE: 08/12/2018 SUBJECTIVE: The patient was seen and examined at bedside. The patient offers no new complaints. His chest pain is better. Denies any new complaints. PHYSICAL EXAMINATION: GENERAL: On examination, middle aged male, lying in bed, in no acute distress. VITAL SIGNS: Blood pressure 124/93, pulse 77, respirations 20, temperature 98.1 degrees Fahrenheit, O2 saturation is 98% on room air. HEENT: Pupils equal, round, and reacting to light and accommodation. Extraocular muscles intact. No icterus. No pallor. NECK: Supple. No JVD. LUNGS: Bilateral vesicular breath sounds. No wheezing. No rhonchi. CARDIOVASCULAR SYSTEM: S1, S2 present and regular. ABDOMEN: Soft, nontender. Bowel sounds present. No guarding. No rigidity. No rebound tenderness noted. CENTRAL NERVOUS SYSTEM: Alert, awake, oriented x3. Left-sided weakness present. EXTREMITIES: No edema. Palpable peripheral pulses. MEDICATIONS: Include Norvasc 10 mg daily, Coreg 25 mg b.i.d., Sensipar 30 mg daily, clonidine 0.3 mg p.o. b.i.d., heparin 5000 units subcutaneous every 12 hours, minoxidil 10 mg daily, Lovaza 1 g p.o. b.i.d., Protonix 40 mg daily, Crestor 5 mg p.o. at bedtime. LABORATORY DATA: Labs from this morning, WBC 6.9, hemoglobin 9.8, hematocrit 29.3, platelets 335, sodium 140, potassium 4, chloride 95, bicarb 30, BUN 42, creatinine 10.7, glucose 97, hemoglobin A1c 4.5, calcium 8, phosphorus 2.5, magnesium 2.2, HDL 25, LDL 74, cholesterol 141, triglycerides 136, TSH 2.71. ASSESSMENT AND PLAN: Middle-aged male with history of hypertension; endstage renal disease, on hemodialysis; history of right kidney tumor, status post right nephrectomy; history of cerebrovascular accident with left-sided weakness; admitted for chest pain; acute coronary syndrome, ruled out by negative troponins. As per Cardiology, the patient underwent stress test a year ago. Cardiology hunt, the patient may be discharged after echo report available. The patient is for hemodialysis today. We will continue with current blood pressure medication. Blood pressure is high. We will adjust medication as needed after dialysis. Follow up with Cardiology for echo report if cleared. We will discharge the patient home. Bradley Giron MD
--- NOTE | 2018-08-12 22:50 | CARD ---
APPROVED REPORT Date of service: 08/12/2018 EXAM: Two-dimensional and M-mode echocardiogram with Doppler and color Doppler. Other Information Quality : GoodRhythm : INDICATION Dyspnea RISK FACTORS Hypertension 2D DIMENSIONS IVSd1.7 (0.7-1.1cm)Aortic Root (2D)2.9 (2.0-3.7cm) LVDd5.6 (3.9-5.9cm)PWd1.5 (0.7-1.1cm) LA Ddpsxm266 (18-58mL)LVDs3.6 (2.5-4.0cm) FS (%) 36.1 %LVEF (%)65.2 (>50%) LVEF (Gonzalez's)60 %IVC0.00 cm M-Mode DIMENSIONS Left Atrium (MM)4.76 (2.5-4.0cm)IVSd1.44 (0.7-1.1cm) Aortic Root3.06 (2.2-3.7cm)LVDd5.49 (4.0-5.6cm) Aortic Cusp Exc.1.66 (1.5-2.0cm)PWd1.62 (0.7-1.1cm) FS (%) 33 %LVDs3.69 (2.0-3.8cm) TAPSE19.37 cmLVEF (%)61 (>50%) Mitral Valve MV E Cuzollbd688.1cm/sMV A Xppvdhmc29.8cm/sE/A ratio1.7 RPXG786.38 cm/s TDI Lateral E' Peak V9.13cm/sMedial E' Peak V7.19cm/sE/Lateral E'11.0 E/Medial E'13.9 Tricuspid Valve TR Peak Vypiibag378aq/sTR Peak Gr.06euMgGHZA72ldDl LEFT VENTRICLE The left ventricle is normal size. There is mild concentric left ventricular hypertrophy. The left ventricular function is normal. The left ventricular ejection fraction is within the normal range. There is normal LV segmental wall motion. RIGHT VENTRICLE The right ventricle is normal size. There is normal right ventricular wall thickness. The right ventricular systolic function is normal. ATRIA The left atrium is mildly dilated. The right atrium is mildly dilated. AORTIC VALVE No aortic regurgitation is present. There is no aortic valvular stenosis. MITRAL VALVE The mitral valve is mildly thickened. There is no mitral valve stenosis. Mitral regurgitation is mild to moderate. TRICUSPID VALVE The tricuspid valve is normal in structure. There is mild to moderate tricuspid regurgitation. There is mild to moderate pulmonary hypertension. PULMONIC VALVE The pulmonary valve is normal in structure. There is no pulmonic valvular regurgitation. GREAT VESSELS The aortic root is normal in size. <Conclusion> The left ventricle is normal size. There is mild concentric left ventricular hypertrophy. The left ventricular function is normal. The left ventricular ejection fraction is within the normal range. There is normal LV segmental wall motion. Mitral regurgitation is mild to moderate. There is mild to moderate tricuspid regurgitation. There is mild to moderate pulmonary hypertension.
--- NOTE | 2018-08-12 23:27 | CON ---
DATE: 08/12/2018 CARDIOLOGY CONSULTATION HISTORY OF PRESENT ILLNESS: This is a 58-year-old black male, came to the emergency room with history of chest pain for the last couple of days. The patient states that the pain has improved, but persistent prompting visit to the emergency room. The patient has a last stress test done in one year ago. Denies shortness of breath, abdominal pain, nausea, or vomiting. No diaphoresis. No swelling of the legs. REVIEW OF SYSTEMS: CARDIOVASCULAR SYSTEM: Positive for chest pain. RESPIRATORY SYSTEM: Negative for shortness of breath. GASTROINTESTINAL SYSTEM: Negative for nausea, vomiting, or abdominal pain. CENTRAL NERVOUS SYSTEM: No focal neurological deficit. No fever. No urinary complaints. All other systems negative. PAST MEDICAL HISTORY: History of anemia, coronary artery disease, congestive heart failure, COPD, hypertension, chronic renal failure, on hemodialysis. ALLERGIES: NO ALLERGIES. FAMILY HISTORY: No known inherited disease. SOCIAL HISTORY: Nonsmoker. Nonalcoholic. No IVDA. PHYSICAL EXAMINATION: GENERAL: This is a 58-year-old black male, alert and oriented, comfortable. VITAL SIGNS: Temperature 98.4, pulse 78, respirations 18, blood pressure 199/108 mmHg, and pulse oxygen 96% on room air. HEENT: Normal. NECK: JVP is flat. Carotids, no bruits. LUNGS: No rales. No wheezing. HEART: S1 and S2 normal. No gallop. No murmur. ABDOMEN: Soft and nontender. No organomegaly. CENTRAL NERVOUS SYSTEM: No focal neurological deficit. No edema of the legs. LABORATORY DATA: On admission, two sets of troponin are negative. Echocardiogram is negative for wall motion abnormality. Mild LVH present. EF is normal. EKG shows normal sinus rhythm with first-degree AV block and ischemic changes in the lateral wall. IMPRESSION: 1. Acute coronary syndrome. 2. Coronary artery disease. 3. Hypertension. 4. Chronic renal failure. PLAN: Suggest, agree with present management. Since the patient's workup for myocardial infarction is negative, the patient can be discharged home and should be followed by leg assembler as outpatient. Continue other medications. Chivo Griggs MD
--- NOTE | 2018-08-12 23:52 | CARD ---
APPROVED REPORT Date of service: 08/11/2018 EKG Measurement Heart [id number] <Conclusion> Sinus rhythm with 1st degree AV block Possible Left atrial enlargement Left axis deviation Left ventricular hypertrophy T wave abnormality, consider lateral ischemia Prolonged QT Abnormal ECG
[2018-08-13 00:21] VITALS: RESP 20
--- NOTE | 2018-08-13 10:06 | CP.PCM.PN ---
Subjective - Date & Time of Evaluation Date of Evaluation: 08/13/18 Time of Evaluation: 10:03 - Subjective Subjective: pt seen and examined resting comfortably no CP or SOB had HD yesterday ROS- 10 point ros negative Objective - Vital Signs/Intake and Output Vital Signs (last 24 hours): Temp Pulse Resp BP Pulse Ox 98.2 F 71 20 136/77 97 08/13/18 07:25 08/13/18 07:25 08/13/18 07:25 08/13/18 07:25 08/13/18 07:25 Intake and Output: 08/13/18 08/13/18 06:59 18:59 Intake Total 120 Balance 120 - Medications Medications: Current Medications Amlodipine Besylate (Norvasc) 10 mg PO DAILY [facility] Last Admin: 08/12/18 09:33 Dose: 10 mg Carvedilol (Coreg) 25 mg PO BID [facility] Last Admin: 08/12/18 17:56 Dose: 25 mg Cinacalcet (Sensipar) 30 mg PO DAILY [facility] Last Admin: 08/12/18 09:34 Dose: 30 mg Clonidine HCl (Catapres) 0.3 mg PO BID [facility] Last Admin: 08/12/18 17:56 Dose: 0.3 mg Heparin Sodium (Porcine) (Heparin) 5,000 units SC Q12 [facility] Last Admin: 08/12/18 22:55 Dose: Not Given Minoxidil (Loniten) 10 mg PO DAILY [facility] Last Admin: 08/12/18 09:33 Dose: 10 mg Aqhzl-2-Jbdm Ethyl Esters (Lovaza) 1 gm PO BID [facility] Last Admin: 08/12/18 17:57 Dose: 1 gm Pantoprazole Sodium (Protonix Ec Tab) 40 mg PO DAILY [facility] Last Admin: 08/12/18 09:33 Dose: 40 mg Rosuvastatin Calcium (Crestor) 5 mg PO HS [facility] Last Admin: 08/12/18 22:54 Dose: 5 mg - Labs Labs: 08/12/18 12:16 08/12/18 12:16 - Constitutional Appears: Well, Non-toxic - Head Exam Head Exam: ATRAUMATIC, NORMOCEPHALIC - Eye Exam Eye Exam: EOMI, PERRL - ENT Exam ENT Exam: Mucous Membranes Moist - Neck Exam Neck Exam: Full ROM - Respiratory Exam Respiratory Exam: Clear to Ausculation Bilateral. absent: Rhonchi, Wheezes - Cardiovascular Exam Cardiovascular Exam: REGULAR RHYTHM, +S1, +S2 - GI/Abdominal Exam GI & Abdominal Exam: Soft. absent: Tenderness - Extremities Exam Extremities Exam: Full ROM. absent: Pedal Edema - Neurological Exam Neurological Exam: Alert, Awake, Oriented x3 - Psychiatric Exam Psychiatric exam: Normal Affect, Normal Mood - Skin Skin Exam: Normal Color, Warm Assessment and Plan (1) Hypertension Status: Acute (2) Chest pain Status: Acute (3) Chronic obstructive pulmonary disease Status: Acute (4) ESRD (end stage renal disease) Status: Acute - Assessment and Plan (Free Text) Plan: maintain HD MWF next hd Wednesday no further chest pain await cardiac evaluation
[2018-08-13] MEDS: Pantoprazole 40 mg EC Tab PO SCH (10:27)
[2018-08-13] MEDS: Omega-3-Acid Ethyl Esters 1 GM Cap PO SCH (10:28)
--- NOTE | 2018-08-13 10:49 | CP.PCM.PN ---
Subjective - Date & Time of Evaluation Date of Evaluation: 08/13/18 Time of Evaluation: 10:47 - Subjective Subjective: CARDIAC STATUS STABLE. VS WNL. NO CP. NO SOB. Objective - Vital Signs/Intake and Output Vital Signs (last 24 hours): Temp Pulse Resp BP Pulse Ox 98.2 F 71 20 136/77 97 08/13/18 07:25 08/13/18 07:25 08/13/18 07:25 08/13/18 10:31 08/13/18 07:25 Intake and Output: 08/13/18 08/13/18 06:59 18:59 Intake Total 120 Balance 120 - Medications Medications: Current Medications Amlodipine Besylate (Norvasc) 10 mg PO DAILY [facility] Last Admin: 08/13/18 10:29 Dose: 10 mg Carvedilol (Coreg) 25 mg PO BID [facility] Last Admin: 08/13/18 10:31 Dose: 25 mg Cinacalcet (Sensipar) 30 mg PO DAILY [facility] Last Admin: 08/13/18 10:27 Dose: 30 mg Clonidine HCl (Catapres) 0.3 mg PO BID [facility] Last Admin: 08/13/18 10:28 Dose: 0.3 mg Heparin Sodium (Porcine) (Heparin) 5,000 units SC Q12 [facility] Last Admin: 08/13/18 10:33 Dose: Not Given Minoxidil (Loniten) 10 mg PO DAILY [facility] Last Admin: 08/13/18 10:28 Dose: 10 mg [id number] Ethyl Esters (Lovaza) 1 gm PO BID [facility] Last Admin: 08/13/18 10:28 Dose: 1 gm Pantoprazole Sodium (Protonix Ec Tab) 40 mg PO DAILY [facility] Last Admin: 08/13/18 10:27 Dose: 40 mg Rosuvastatin Calcium (Crestor) 5 mg PO HS [facility] Last Admin: 08/12/18 22:54 Dose: 5 mg - Labs Labs: 08/12/18 12:16 08/12/18 12:16 - Constitutional Appears: No Acute Distress, Chronically Ill - Eye Exam Eye Exam: Normal appearance, PERRL - ENT Exam ENT Exam: Mucous Membranes Moist - Respiratory Exam Respiratory Exam: Clear to Ausculation Bilateral, NORMAL BREATHING PATTERN - Cardiovascular Exam Cardiovascular Exam: REGULAR RHYTHM, +S1, +S2 - GI/Abdominal Exam GI & Abdominal Exam: Soft, Normal Bowel Sounds - Extremities Exam Extremities Exam: Full ROM, Normal Capillary Refill, Normal Inspection. absent: Joint Swelling, Pedal Edema - Neurological Exam Neurological Exam: Alert, Awake, CN II-XII Intact, Normal Gait, Oriented x3 - Psychiatric Exam Psychiatric exam: Normal Affect, Normal Mood Assessment and Plan - Assessment and Plan (Free Text) Assessment: CHEST PAIN. TROPONIN NEG. CRF. HTN. Plan: CT PRESENT TREATMENT.
--- NOTE | 2018-08-13 15:32 | CP.PCM.PN ---
Subjective - Date & Time of Evaluation Date of Evaluation: 08/13/18 Time of Evaluation: 15:32 - Subjective Subjective: Discharge summary dictated #[id number] Objective - Vital Signs/Intake and Output Vital Signs (last 24 hours): Temp Pulse Resp BP Pulse Ox 98.2 F 74 20 136/77 97 08/13/18 07:25 08/13/18 10:00 08/13/18 07:25 08/13/18 10:31 08/13/18 07:25 Intake and Output: 08/13/18 08/13/18 06:59 18:59 Intake Total 120 Balance 120 - Medications Medications: Current Medications Amlodipine Besylate (Norvasc) 10 mg PO DAILY [facility] Last Admin: 08/13/18 10:29 Dose: 10 mg Carvedilol (Coreg) 25 mg PO BID [facility] Last Admin: 08/13/18 10:31 Dose: 25 mg Cinacalcet (Sensipar) 30 mg PO DAILY [facility] Last Admin: 08/13/18 10:27 Dose: 30 mg Clonidine HCl (Catapres) 0.3 mg PO BID [facility] Last Admin: 08/13/18 10:28 Dose: 0.3 mg Heparin Sodium (Porcine) (Heparin) 5,000 units SC Q12 [facility] Last Admin: 08/13/18 10:33 Dose: Not Given Minoxidil (Loniten) 10 mg PO DAILY [facility] Last Admin: 08/13/18 10:28 Dose: 10 mg [id number]-[id number] Ethyl Esters (Lovaza) 1 gm PO BID [facility] Last Admin: 08/13/18 10:28 Dose: 1 gm Pantoprazole Sodium (Protonix Ec Tab) 40 mg PO DAILY [facility] Last Admin: 08/13/18 10:27 Dose: 40 mg Rosuvastatin Calcium (Crestor) 5 mg PO HS [facility] Last Admin: 08/12/18 22:54 Dose: 5 mg - Labs Labs: 08/12/18 12:16 08/12/18 12:16
[2018-08-13 15:55] VITALS: PULSE 69
[2018-08-13 15:56] VITALS: O2SAT 100
[2018-08-13 16:21] VITALS: BP 106/63; TEMP 98.1
== END 2018-08-13 18:33 | disposition home or self-care (01) ==
LOC: C.ER 11:07 → C.6T 14:04
PROVIDERS: ADMIT Internal Medicine; ATTEND Internal Medicine
DX: R07.89 Other chest pain (principal); I12.0 Hypertensive chronic kidney disease with stage 5 chronic kidney disease or end stage renal disease; N18.6 End stage renal disease; E78.00 Pure hypercholesterolemia, unspecified; E78.5 Hyperlipidemia, unspecified; J44.9 Chronic obstructive pulmonary disease, unspecified; Z99.2 Dependence on renal dialysis; Z86.73 Personal history of transient ischemic attack (TIA), and cerebral infarction without residual deficits; F17.210 Nicotine dependence, cigarettes, uncomplicated; Z90.5 Acquired absence of kidney
CPT/HCPCS: 36415; 71046; 80053; 80061; 83036; 83735; 84100; 84443; 84484; 85025; 93005; 93306; 99285; G0257; G0378